=== PATIENT | male | born 1940 | race Asian ===

== ENCOUNTER 2016-10-19 11:54 | Inpatient (IN) | payer OTHER, MEDICAID ==
[~2016-10-19] VITALS: Ht 165.1 cm; Wt 75.3 kg
[2016-10-19] MEDS ORDERED: Ipratropium 0.02% Inh Soln 2.5ml UD ONE (12:32)
[2016-10-19] MEDS ORDERED: Albuterol ud Inhalation ONE (12:32)
[2016-10-19] MEDS ORDERED: Azithromycin 500 MG in D5W 275 ML IVPB ONE (12:45)
[2016-10-19] MEDS ORDERED: Solu-MEDROL 125mg Inj IVP ONE (12:45)
--- NOTE | 2016-10-19 12:45 | Emergency Room Report ---
History of Present Illness General Chief Complaint: Upper Respiratory Illness Source: Medical Record Present Illness HPI 76 YO M with "a few days" of cough, SOB, fever/chills. Was seen at outside hospital [facility] ED yesterday. 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 Patient with history of COPD, has pacemaker. Allergies: Coded Allergies: No Known Allergies (Verified Allergy, Unknown, 02/03/08) Patient History Past Medical History: COPD Past Surgical History: pacemaker Pertinent Family History: none Social History: Denies: alcohol use, drug use, smoking Immunizations: UTD Reviewed Nursing Documentation: PMH: Agreed, PSxH: Agreed Nursing Documentation-PMH Hx Cardiac Problems: Yes Hx Pacemaker: Yes - Pacemaker, Defibrilator Hx COPD: Yes Hx Diabetes: Yes History Of Psychiatric Problem: Yes - Developmental delay Review of Systems All Other Systems: negative except mentioned in HPI Physical Exam Vital Signs Date Time Temp Pulse Resp B/P Pulse Ox O2 Delivery O2 Flow Rate FiO2 10/19/16 12:06 101.1 102 20 151/67 97 Room Air Sp02 EP Interpretation: reviewed, normal General Appearance: normal inspection, well appearing, alert, GCS 15, non-toxic , mild distress Head: normocephalic, atraumatic Eyes: bilateral eye EOMI, bilateral eye PERRL ENT: normal ENT inspection, hearing grossly normal, normal voice Neck: normal inspection, full range of motion, supple, no bony tend Respiratory: normal inspection, accessory muscle use, speaking full sentences, wheezing Cardiovascular #1: regular rate, rhythm, no edema Gastrointestinal: normal inspection, normal bowel sounds, non tender, soft, no guarding, no hernia Genitourinary: no CVA tenderness Musculoskeletal: normal inspection, back normal, normal range of motion, Chayito' s Sign negative Neurologic: normal inspection, alert, oriented x3, responsive, director of 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 I attest that this information is true, accurate and complete to the best of my knowledge. I understand that any falsification, omission, or concealment of material fact may subject me to administrative, civil, or criminal liability. This patient warrants hospital admission for extreme of age and has a condition that cannot be treated as outpatient. Diagnostic Impression: Primary Impression: COPD exacerbation Additional Impression: SUSAN (acute kidney injury) ER Course COPD exacerbation. Febrile. Otherwise VS. PLAN Labs: No leuks. Stable H&H. SUSAN. Elevated BNP A: COPD exacerbation, SUSAN Improved on Duonebs, solumedrol, IV Mg, empiric Azithro, tylenol No obvious source of infection to warrant additional ABx at this time Elevated BNP in setting of elevated serumCr. Patient's O2 sat 98% on RA, unlikely concomitant acute CHF Admit to tele with Dr Cobb for [facility] [employer] [facility] insurance coverage Tele admission at 230pm EKG Diagnostic Results Rate: normal Rhythm: NSR ST Segments: no acute changes ASA given to the pt in ED: No Rhythm Strip Diag. Results EP Interpretation: yes Rate: 75 Rhythm: NSR, no PVC's, no ectopy Chest X-Ray Diagnostic Results EP Interpretation: Yes Findings: no consolidation, no effusion, no pneumothorax, no acute cardiopulmonary disease, other - Sternal wires seen with pacemarker/AICD Number of Views: 1 Last Vital Signs Date Time Temp Pulse Resp B/P Pulse Ox O2 Delivery O2 Flow Rate FiO2 10/19/16 12:06 101.1 102 20 151/67 97 Room Air Status: improved Disposition: ADMITTED INPATIENT Condition: Serious JOEY BOWLING M.D. Oct 19, 2016 12:45
[2016-10-19] MEDS: Ipratropium 0.02% Inh Soln 2.5ml UD HHN SCH ×2 (12:59→13:21)
[2016-10-19] MEDS: Albuterol ud Inhalation HHN SCH ×2 (12:59→13:21)
[2016-10-19] MEDS ORDERED: Azithromycin Inj IV ONE (13:01)
[2016-10-19 13:28] LABS: BASOPHILS % (AUTO) 0.6 % (0.0-2.0); EOSINOPHILS % (AUTO) 1.9 % (0.0-3.0); MEAN CORPUSCULAR HEMOGLOBIN 32.1 PG (27.0-31.0); MEAN CORPUSCULAR VOLUME 97 FL (80-99); MEAN PLATELET VOLUME 7.1 FL (6.5-10.1); MONOCYTES % (AUTO) 13.3 % (1.0-10.0); NEUTROPHILS % (AUTO) 72.2 % (45.0-75.0); PLATELET COUNT 185 K/UL (150-450); RED BLOOD COUNT 4.16 M/UL (4.70-6.10); RED CELL DISTRIBUTION WIDTH 11.9 % (11.6-14.8); WHITE BLOOD COUNT 6.7 K/UL (4.8-10.8)
[2016-10-19 13:44] LABS: ALANINE AMINOTRANSFERASE 35 U/L (3-41); ALBUMIN/GLOBULIN RATIO 1.1 (1.0-2.7); ANION GAP 16 (5-15); ASPARTATE AMINO TRANSFERASE 54 U/L (5-40); CALCIUM 8.4 mg/dL (8.6-10.2); CARBON DIOXIDE 28 mEQ/L (20-30); CHLORIDE 92 mEQ/L (98-107); CREATININE 1.4 mg/dL (0.7-1.2); HEMOLYSIS 7; POTASSIUM 4.1 mEQ/L (3.4-4.9); SODIUM 136 mEQ/L (135-145); TOTAL PROTEIN 6.7 g/dL (6.6-8.7); TROPONIN I < 0.30 ng/mL (<=0.30)
[2016-10-19 13:55] LABS: CKMB 2.5 ng/mL (< 6.7)
[2016-10-19] MEDS ORDERED: NKM (15:11)
[2016-10-19 15:29] VITALS: BP 125/75
[2016-10-19 17:29] VITALS: BP 121/79
[2016-10-19] MEDS ORDERED: LORazepam Inj 2mg/ml 1ml IV PRN (18:15)
[2016-10-19] MEDS ORDERED: Promethazine/Codeine 5ml UD ORAL PRN (18:15)
[2016-10-19] MEDS ORDERED: DuoNeb 0.5-3(2.5)mg/3ml neb HHN PRN ×2 (18:15)
[2016-10-19] MEDS ORDERED: Morphine Sulfate 2mg/ml Inj IVP PRN (18:15)
[2016-10-19] MEDS ORDERED: Nitroglycerin Subl 0.4mg tab (Bottle Of 25) SL PRN (18:15)
[2016-10-19] MEDS ORDERED: Miralax 17gm pkt ORAL PRN (18:15)
[2016-10-19 20:00] VITALS: BP 128/73
[2016-10-19] MEDS: Theophylline ER 100mg ORAL SCH (22:00)
[2016-10-19] MEDS: Heparin 5000 units/ml inj SUBQ SCH (22:01)
[2016-10-19] MEDS: NovoLOG Insulin Flexpen SUBQ SCH (22:02)
[2016-10-20] MEDS: Solu-MEDROL 125mg Inj IV SCH ×4 (00:15→21:37)
[2016-10-20 00:20] VITALS: BP 127/77
[2016-10-20 04:30] VITALS: BP 126/76
[2016-10-20 05:56] LABS: MEAN CORPUSCULAR HEMOGLOBIN 32.2 PG (27.0-31.0); MEAN CORPUSCULAR HGB CONC 33.9 G/DL (32.0-36.0); MEAN CORPUSCULAR VOLUME 95 FL (80-99); MEAN PLATELET VOLUME 7.2 FL (6.5-10.1); PLATELET COUNT 188 K/UL (150-450); RED BLOOD COUNT 4.15 M/UL (4.70-6.10); RED CELL DISTRIBUTION WIDTH 11.5 % (11.6-14.8)
[2016-10-20 06:11] LABS: ANION GAP 14 (5-15); CALCIUM 8.5 mg/dL (8.6-10.2); CARBON DIOXIDE 25 mEQ/L (20-30); CHLORIDE 98 mEQ/L (98-107); CREATININE 1.2 mg/dL (0.7-1.2); HEMOLYSIS 5; PHOSPHORUS 2.5 mg/dL (2.5-4.8); POTASSIUM 4.4 mEQ/L (3.4-4.9); SODIUM 137 mEQ/L (135-145)
[2016-10-20] MEDS: NovoLOG Insulin Flexpen SUBQ SCH ×4 (06:29→21:40)
[2016-10-20 07:15] LABS: ALANINE AMINOTRANSFERASE 31 U/L (3-41); ANION GAP 18 (5-15); ASPARTATE AMINO TRANSFERASE 41 U/L (5-40); CALCIUM 8.5 mg/dL (8.6-10.2); CARBON DIOXIDE 24 mEQ/L (20-30); CHLORIDE 94 mEQ/L (98-107); CREATININE 1.2 mg/dL (0.7-1.2); HEMOLYSIS 7; POTASSIUM 4.3 mEQ/L (3.4-4.9); SODIUM 136 mEQ/L (135-145); TOTAL PROTEIN 6.8 g/dL (6.6-8.7)
--- NOTE | 2016-10-20 07:29 | History and Physical ---
History of Present Illness General Date patient seen: Oct 20, 2016 Time patient seen: 07:30 Reason for Hospitalization: Upper Respiratory Illness Present Illness HPI 76 y/old male with few days of cough, SOB, fever/chills patient resides at [facility], hx of open heart surgery, pacemaker, DM, COPD, developmental delay. Patient was unable to provide any info due to medical condition. Workup in ED revealed fever -101.1, tachycardia-102, pulse oximetry stable on RA , no leukocytosis CXR with evidence of cardiomegaly with moderate pulmonary edema and suspected small left pleural effusion. ECG with ST, pro BNP 2596, troponin negative, creat-1.4 Unknown medications from [facility] in ED patient received nebulizing treatment , loading dose of IV Solumedrol, IV Magnesium, Tylenol and 1st dose of Azithromycin. Transferred to [facility] for further management Allergies: Coded Allergies: No Known Allergies (Verified Allergy, Unknown, 02/03/08) Medication History Scheduled No Known Medications* (NKM - No Known Medications*), 0 ., (Reported) Patient History Limited by: medical condition History Provided By: Medical Record Healthcare decision maker Resuscitation status Full Code Advanced Directive on File Review of Systems ROS Narrative Unable to obtain due to developmental delay Physical Exam General Appearance: no apparent distress, alert - responsive, incomprehensible speech Lines, tubes and drains: peripheral HEENT: normocephalic, atraumatic, anicteric, mucous membranes moist Neck: non-tender, supple Respiratory/Chest: lungs clear - with mdoerate air entry , no respiratory distress, no accessory muscle use, other - L chest pacemaker Cardiovascular/Chest: normal peripheral pulses, normal rate, no JVD Abdomen: normal bowel sounds, non tender, soft Extremities: normal range of motion, non-tender, no calf tenderness, normal capillary refill Neurologic: alert, responsive Musculoskeletal: normal muscle bulk Last 24 Hour Vital Signs Date Time Temp Pulse Resp B/P Pulse Ox O2 Delivery O2 Flow Rate FiO2 10/20/16 04:30 98.0 79 20 126/76 95 Room Air 10/20/16 04:00 84 10/20/16 03:01 89 18 96 Room Air 21 10/20/16 02:54 85 18 96 Room Air 21 10/20/16 00:20 97.9 83 20 127/77 97 Room Air 10/20/16 00:00 85 10/19/16 23:17 94 18 98 Nasal Cannula 2.0 28 10/19/16 23:12 91 18 98 Nasal Cannula 2.0 28 10/19/16 20:02 90 19 Room Air 10/19/16 20:00 98.2 90 20 128/73 Nasal Cannula 2.0 98 10/19/16 20:00 87 10/19/16 20:00 92 18 98 Nasal Cannula 2.0 28 10/19/16 19:55 90 18 98 Nasal Cannula 2.0 28 10/19/16 18:10 84 10/19/16 17:30 99.6 86 20 121/79 97 Room Air 10/19/16 17:29 99.6 86 20 121/79 97 Room Air 10/19/16 15:38 99.7 10/19/16 15:30 83 19 Room Air 10/19/16 15:29 99.7 83 19 125/75 93 Room Air 10/19/16 13:22 98 20 100 Room Air 10/19/16 13:05 97 20 100 Room Air 10/19/16 13:01 94 19 100 Room Air 10/19/16 12:50 95 19 100 Room Air 10/19/16 12:50 95 19 100 Room Air 10/19/16 12:40 92 20 100 Room Air 10/19/16 12:40 93 20 Room Air 10/19/16 12:06 101.1 102 20 151/67 97 Room Air Laboratory Tests Test 10/19/16 13:00 10/20/16 05:05 White Blood Count 6.7 K/UL (4.8-10.8) 8.0 K/UL (4.8-10.8) Red Blood Count 4.16 M/UL (4.70-6.10) L 4.15 M/UL (4.70-6.10) L Hemoglobin 13.3 G/DL (14.2-18.0) L 13.4 G/DL (14.2-18.0) L Hematocrit 40.4 % (42.0-52.0) L 39.4 % (42.0-52.0) L Mean Corpuscular Volume 97 FL (80-99) 95 FL (80-99) Mean Corpuscular Hemoglobin 32.1 PG (27.0-31.0) H 32.2 PG (27.0-31.0) H Mean Corpuscular Hemoglobin Concent 33.0 G/DL (32.0-36.0) 33.9 G/DL (32.0-36.0) Red Cell Distribution Width 11.9 % (11.6-14.8) 11.5 % (11.6-14.8) L Platelet Count 185 K/UL (150-450) 188 K/UL (150-450) Mean Platelet Volume 7.1 FL (6.5-10.1) 7.2 FL (6.5-10.1) Neutrophils (%) (Auto) 72.2 % (45.0-75.0) % (45.0-75.0) Lymphocytes (%) (Auto) 12.0 % (20.0-45.0) L % (20.0-45.0) Monocytes (%) (Auto) 13.3 % (1.0-10.0) H % (1.0-10.0) Eosinophils (%) (Auto) 1.9 % (0.0-3.0) % (0.0-3.0) Basophils (%) (Auto) 0.6 % (0.0-2.0) % (0.0-2.0) Sodium Level 136 mEQ/L (135-145) 137 mEQ/L (135-145) Potassium Level 4.1 mEQ/L (3.4-4.9) 4.4 mEQ/L (3.4-4.9) Chloride Level 92 mEQ/L (98-107) L 98 mEQ/L (98-107) Carbon Dioxide Level 28 mEQ/L (20-30) 25 mEQ/L (20-30) Anion Gap 16 (5-15) H 14 (5-15) Blood Urea Nitrogen 22 mg/dL (7-23) 26 mg/dL (7-23) H Creatinine 1.4 mg/dL (0.7-1.2) H 1.2 mg/dL (0.7-1.2) Estimat Glomerular Filtration Rate mL/min (>60) mL/min (>60) Glucose Level 236 mg/dL (74-106) H 246 mg/dL (74-106) H Calcium Level 8.4 mg/dL (8.6-10.2) L 8.5 mg/dL (8.6-10.2) L Total Bilirubin 0.4 mg/dL (0.0-1.2) 0.3 mg/dL (0.0-1.2) Aspartate Amino Transf (AST/SGOT) 54 U/L (5-40) H 41 U/L (5-40) H Alanine Aminotransferase (ALT/SGPT) 35 U/L (3-41) 31 U/L (3-41) Alkaline Phosphatase 54 U/L (40-129) 50 U/L (40-129) Total Creatine Kinase 1673 U/L (38-174) H Creatine Kinase MB 2.5 ng/mL (< 6.7) Creatine Kinase MB Relative Index 0.1 Troponin I < 0.30 ng/mL (<=0.30) Pro-B-Type Natriuretic Peptide 2596 pg/mL (0-450) H Total Protein 6.7 g/dL (6.6-8.7) 6.8 g/dL (6.6-8.7) Albumin 3.6 g/dL (3.5-5.2) 3.2 g/dL (3.5-5.2) L Globulin 3.1 g/dL 3.4 g/dL Albumin/Globulin Ratio 1.1 (1.0-2.7) 1.0 (1.0-2.7) Phosphorus Level 2.5 mg/dL (2.5-4.8) Height (Feet): 5 Height (Inches): 5.00 Weight (Pounds): 166 Medications Current Medications Medications (Trade) Dose Ordered Sig/Hemant Route PRN Reason Start Time Stop Time Status Last Admin Dose Admin Acetaminophen (Tylenol) 650 mg Q4H PRN ORAL fever 10/19/16 18:15 3 18:14 Albuterol/ Ipratropium (DuoNeb 0.5-3(2.5)mg/3ml) 3 ml Q4H PRN HHN dyspnea 10/19/16 18:15 2 18:14 Clonidine HCl (Catapres) 0.1 mg Q4H PRN ORAL sbp more than 160 10/19/16 18:15 11/18/16 18:14 Dextrose (Dextrose 50%) STAT PRN IV Hypoglycemia 10/19/16 18:15 11/18/16 18:14 Heparin Sodium (Porcine) (Heparin 5000 units/ml) 5,000 units EVERY 12 HOURS SUBQ 10/19/16 21:00 11/18/16 20:59 10/19/16 22:01 Influenza Virus Vaccine (Flu Vaccine) 0.5 ml ONCE ONCE IM 10/20/16 09:00 10/20/16 09:01 Insulin Aspart (NovoLOG) BEFORE MEALS AND HS SUBQ 10/19/16 21:00 11/18/16 20:59 10/20/16 06:29 Lorazepam (Ativan 2mg/ml 1ml) 0.5 mg Q4H PRN IV For Anxiety 10/19/16 18:15 10/26/16 18:14 Methylprednisolone Sodium Succinate (Solu-MEDROL) 60 mg EVERY 6 HOURS IV 10/20/16 00:00 11/19/16 00:00 10/20/16 06:23 Morphine Sulfate (Morphine Sulfate) 2 mg Q4H PRN IVP severe pain 7-10 10/19/16 18:15 10/26/16 18:14 Nitroglycerin (Ntg) 0.4 mg Q5M X 3 DOSES PRN SL Prn Chest Pain 10/19/16 18:15 11/18/16 18:14 Ondansetron HCl (Zofran) 4 mg Q6H PRN IVP Nausea & Vomiting 10/19/16 18:15 11/18/16 18:14 Pneumococcal Polyvalent Vaccine (Pneumovax) 0.5 ml ONCE ONCE IM 10/20/16 09:00 10/20/16 09:01 Polyethylene Glycol (Miralax) 17 gm DAILYPRN PRN ORAL Constipation 10/19/16 18:15 11/18/16 18:14 Promethazine HCl/ Codeine (Phenergan with Codeine) 5 ml Q6H PRN ORAL cough 10/19/16 18:15 11/18/16 18:14 Theophylline (Klever-Dur) 100 mg EVERY 12 HOURS ORAL 10/19/16 21:00 11/18/16 20:59 10/19/16 22:00 Assessment/Plan Assessment/Plan ASSESSMENT acute COPD exacerbation pacemaker ARF/ATN on ? CRI mild rhabdo moderate pulmonary edema left pleural effusion DM developmental delay PLAN OF CARE tele O2 HHN prn CXR with evidence of cardiomegaly with moderate pulmonary edema and suspected small left pleural effusion. taper IV steroids empiric abx sputum cx if able trial of Theophylline antitussive prn US chest in am and if enough pleural fluid to safely tap -thoracentesis, check INR trend CK in am get medication list form B&C possible medication causing rhabdo ? statin monitor renal parameters, lytes, renal US BS management with SS of insulin, check HgA1c Venous Duplex BLE DVT, GI prophylaxis transfer to [facility] floor case discussed and evaluated by supervising physician Dante ([place]),Leyla JAMISON Oct 20, 2016 07:29
[2016-10-20 08:00] VITALS: BP 130/66
--- NOTE | 2016-10-20 08:31 | Diagnostic Imaging Report ---
Clinical history: Acute dyspnea, cough. Technique: Portable AP chest radiograph was obtained. Comparison: 02/07/08. Findings: Left chest cardiac conduction device is in place. Median sternotomy wires and mediastinal clips are identified. There is mild cardiomegaly. Moderate perihilar and interstitial opacities are reflective of moderate pulmonary edema. Lung volumes are low with probable basilar atelectasis. Small left pleural effusion may be present. There is no clinically significant pneumothorax or right pleural effusion. Impression: 1. Cardiomegaly with moderate pulmonary edema and suspected small left pleural effusion. Left chest cardiac conduction device and post cardiothoracic surgical changes noted. 2. Low lung volumes with probable basilar atelectasis.
[2016-10-20] MEDS ORDERED: Influenza Virus Vaccine 0.5ml IM ONE (09:00)
[2016-10-20] MEDS ORDERED: Pneumococcal Vaccine 25mcg/0.5ml IM ONE (09:00)
[2016-10-20] MEDS: Theophylline ER 100mg ORAL SCH ×2 (10:40→21:39)
[2016-10-20] MEDS: Heparin 5000 units/ml inj SUBQ SCH ×2 (10:45→21:41)
[2016-10-20 12:00] VITALS: BP 130/78
[2016-10-20] MEDS: Levofloxacin 500mg tab ORAL SCH (12:23)
[2016-10-20 16:00] VITALS: BP 139/76
[2016-10-20 18:30] LABS: TROPONIN I < 0.30 ng/mL (<=0.30)
[2016-10-20 20:00] VITALS: BP 130/79
[2016-10-21] VITALS: BP 117/71
[2016-10-21 04:00] VITALS: BP 117/67
[2016-10-21] MEDS: NovoLOG Insulin Flexpen SUBQ SCH ×3 (06:44→21:25)
[2016-10-21] MEDS: Solu-MEDROL 125mg Inj IV SCH ×3 (06:44→21:21)
[2016-10-21 06:48] LABS: PROTHROMBIN TIME 10.2 SEC (9.30-11.50)
[2016-10-21 06:58] LABS: TROPONIN I < 0.30 ng/mL (<=0.30)
[2016-10-21] MEDS: Levofloxacin 500mg tab ORAL SCH (08:29)
[2016-10-21] MEDS: Theophylline ER 100mg ORAL SCH ×2 (08:29→21:21)
[2016-10-21] MEDS: Heparin 5000 units/ml inj SUBQ SCH ×2 (08:30→21:24)
[2016-10-21 08:50] VITALS: BP 127/72
--- NOTE | 2016-10-21 10:06 | Cardiology Report ---
APPROVED REPORT EKG Measurement Heart [id number] Normal sinus rhythm Possible Left atrial enlargement Septal infarct, age undetermined Abnormal ECG
[2016-10-21 11:53] VITALS: BP 121/77
[2016-10-21] MEDS ORDERED: Nitroglycerin Subl 0.4mg tab (Bottle Of 25) SL PRN (12:00)
--- NOTE | 2016-10-21 12:01 | Diagnostic Imaging Report ---
Indication: Dyspnea Comparison: 10/19/16 A single view chest radiograph was obtained. Findings: Central vascular prominence and cardiomegaly are again noted. No change demonstrated. Impression: Mild CHF
[2016-10-21] MEDS ORDERED: Promethazine/Codeine 5ml UD ORAL PRN (12:15)
[2016-10-21] MEDS ORDERED: Miralax 17gm pkt ORAL PRN (13:15)
[2016-10-21] MEDS ORDERED: LORazepam Inj 2mg/ml 1ml IV PRN (13:30)
[2016-10-21] MEDS ORDERED: Morphine Sulfate 2mg/ml Inj IVP PRN (14:15)
[2016-10-21 16:45] VITALS: BP 118/70
[2016-10-21 19:59] VITALS: BP 118/73
[2016-10-22 04:00] VITALS: BP 121/73
[2016-10-22] MEDS: Solu-MEDROL 125mg Inj IV SCH (06:33)
[2016-10-22] MEDS: NovoLOG Insulin Flexpen SUBQ SCH ×4 (06:34→20:56)
[2016-10-22 08:37] VITALS: BP 129/74
[2016-10-22] MEDS: Theophylline ER 100mg ORAL SCH ×2 (08:59→20:55)
[2016-10-22] MEDS: Levofloxacin 500mg tab ORAL SCH (09:01)
[2016-10-22] MEDS: Heparin 5000 units/ml inj SUBQ SCH ×2 (09:06→20:54)
[2016-10-22] MEDS: DuoNeb 0.5-3(2.5)mg/3ml neb HHN PRN ×2 (09:28→16:15)
[2016-10-22 11:39] VITALS: BP 129/78
[2016-10-22 16:00] VITALS: BP 132/79
--- NOTE | 2016-10-22 16:19 | Diagnostic Imaging Report ---
Indication: Pleural effusion, dyspnea Technique: Grayscale images of the bilateral hemithoraces Comparison: None Findings: No pleural fluid is demonstrated either hemithorax Impression: Negative for pleural effusion
--- NOTE | 2016-10-22 17:08 | Pulmonology Progress Note ---
Assessment/Plan Problems: (1) Acute respiratory failure (2) COPD exacerbation (3) SUSAN (acute kidney injury) Assessment/Plan taper steroids continue antibiotics no cultures available yet check electrolytes. Subjective Interval Events: later entery for 10/21/ sitting up in the chair , not communicating Allergies: Coded Allergies: No Known Allergies (Verified Allergy, Unknown, 02/03/08) Objective Last 24 Hour Vital Signs Date Time Temp Pulse Resp B/P Pulse Ox O2 Delivery O2 Flow Rate FiO2 10/22/16 16:16 84 18 100 Room Air 21 10/22/16 16:15 21 10/22/16 16:15 82 16 100 Room Air 21 10/22/16 16:00 98.1 81 20 132/79 100 Room Air 10/22/16 11:39 97.3 79 15 129/78 100 Room Air 10/22/16 09:28 86 15 98 Room Air 21 10/22/16 09:28 21 10/22/16 08:37 97.2 85 14 129/74 97 Room Air 10/22/16 07:04 85 16 Room Air 10/22/16 04:00 97.4 75 18 121/73 98 Room Air 10/21/16 19:59 97.1 77 19 118/73 98 Room Air 10/21/16 19:52 83 18 Room Air 21 Intake and Output 10/21/16 10/22/16 19:00 07:00 Intake Total 440 ml 840 ml Balance 440 ml 840 ml Intake Oral 440 ml 840 ml # Voids 3 7 Objective General Appearance: cachetic Lines, tubes and drains: peripheral HEENT: normocephalic, atraumatic Neck: non-tender, normal alignment Respiratory/Chest: chest wall non-tender, lungs clear Breasts: no masses Cardiovascular/Chest: normal peripheral pulses Abdomen: normal bowel sounds, non tender Genitourinary/Rectal: normal genital exam Extremities: normal range of motion, normal inspection Skin Exam: normal pigmentation Microbiology Date/Time Source Procedure Growth Status 10/20/16 04:30 Nasal Nares 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 Complete 10/20/16 04:30 Rectal Mucosa VRE Culture - Final NO VANCOMYCIN RESISTANT ENTEROCOCCUS ... Complete Current Medications Medications (Trade) Dose Ordered Sig/Hemant Route PRN Reason Start Time Stop Time Status Last Admin Dose Admin Acetaminophen (Tylenol) 650 mg Q4H PRN ORAL fever 10/21/16 13:30 11/20/16 13:29 Albuterol/ Ipratropium (DuoNeb 0.5-3(2.5)mg/3ml) 3 ml Q4H PRN HHN dyspnea 10/21/16 13:15 10/26/16 13:14 10/22/16 16:15 Clonidine HCl (Catapres) 0.1 mg Q4H PRN ORAL sbp more than 160 10/21/16 14:15 11/20/16 14:14 Dextrose (Dextrose 50%) STAT PRN IV Hypoglycemia 10/21/16 13:15 11/20/16 13:14 Heparin Sodium (Porcine) (Heparin 5000 units/ml) 5,000 units EVERY 12 HOURS SUBQ 10/21/16 21:00 11/20/16 20:59 10/22/16 09:06 Insulin Aspart (NovoLOG) BEFORE MEALS AND HS SUBQ 10/21/16 16:30 11/20/16 16:29 10/22/16 12:22 Levofloxacin (Levaquin) 500 mg DAILY ORAL 10/22/16 09:00 10/26/16 08:59 10/22/16 09:01 Lorazepam (Ativan 2mg/ml 1ml) 0.5 mg Q4H PRN IV For Anxiety 10/21/16 13:30 10/28/16 13:29 Morphine Sulfate (Morphine Sulfate) 2 mg Q4H PRN IVP severe pain 7-10 10/21/16 14:15 10/28/16 14:14 Nitroglycerin (Ntg) 0.4 mg Q5M X 3 DOSES PRN SL Prn Chest Pain 10/21/16 12:00 11/20/16 11:59 Ondansetron HCl (Zofran) 4 mg Q6H PRN IVP Nausea & Vomiting 10/21/16 14:15 11/20/16 14:14 Polyethylene Glycol (Miralax) 17 gm DAILYPRN PRN ORAL Constipation 10/21/16 13:15 11/20/16 13:14 Promethazine HCl/ Codeine (Phenergan with Codeine) 5 ml Q6H PRN ORAL cough 10/21/16 12:15 11/20/16 12:14 10/22/16 09:02 Theophylline (Klever-Dur) 100 mg EVERY 12 HOURS ORAL 10/21/16 21:00 11/20/16 20:59 10/22/16 08:59 JASE COSTA Oct 22, 2016 17:08
--- NOTE | 2016-10-22 17:10 | Pulmonology Progress Note ---
Assessment/Plan Problems: (1) Acute respiratory failure (2) COPD exacerbation (3) SUSAN (acute kidney injury) Assessment/Plan improving dc planning taper steroids continue antibiotics no cultures available yet check electrolytes. Subjective ROS Limited/Unobtainable: No Interval Events: less cough, no sob Allergies: Coded Allergies: No Known Allergies (Verified Allergy, Unknown, 02/03/08) Objective Last 24 Hour Vital Signs Date Time Temp Pulse Resp B/P Pulse Ox O2 Delivery O2 Flow Rate FiO2 10/22/16 16:16 84 18 100 Room Air 21 10/22/16 16:15 21 10/22/16 16:15 82 16 100 Room Air 21 10/22/16 16:00 98.1 81 20 132/79 100 Room Air 10/22/16 11:39 97.3 79 15 129/78 100 Room Air 10/22/16 09:28 86 15 98 Room Air 21 10/22/16 09:28 21 10/22/16 08:37 97.2 85 14 129/74 97 Room Air 10/22/16 07:04 85 16 Room Air 10/22/16 04:00 97.4 75 18 121/73 98 Room Air 10/21/16 19:59 97.1 77 19 118/73 98 Room Air 10/21/16 19:52 83 18 Room Air 21 Intake and Output 10/21/16 10/22/16 19:00 07:00 Intake Total 440 ml 840 ml Balance 440 ml 840 ml Intake Oral 440 ml 840 ml # Voids 3 7 Objective General Appearance: cachetic Lines, tubes and drains: peripheral HEENT: normocephalic, atraumatic Neck: non-tender, normal alignment Respiratory/Chest: chest wall non-tender, lungs clear Breasts: no masses Cardiovascular/Chest: normal peripheral pulses Abdomen: normal bowel sounds, non tender Genitourinary/Rectal: normal genital exam Extremities: normal range of motion, normal inspection Skin Exam: normal pigmentation HEENT: normocephalic Respiratory/Chest: chest wall non-tender, lungs clear Cardiovascular: normal peripheral pulses Abdomen: normal bowel sounds, soft, non tender Extremities: no cyanosis Neurologic/Psychiatric: information scientist II-XII grossly normal, no motor/sensory deficits Microbiology Date/Time Source Procedure Growth Status 10/20/16 04:30 Nasal Nares 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 Complete 10/20/16 04:30 Rectal Mucosa VRE Culture - Final NO VANCOMYCIN RESISTANT ENTEROCOCCUS ... Complete Current Medications Medications (Trade) Dose Ordered Sig/Hemant Route PRN Reason Start Time Stop Time Status Last Admin Dose Admin Acetaminophen (Tylenol) 650 mg Q4H PRN ORAL fever 10/21/16 13:30 11/20/16 13:29 Albuterol/ Ipratropium (DuoNeb 0.5-3(2.5)mg/3ml) 3 ml Q4H PRN HHN dyspnea 10/21/16 13:15 10/26/16 13:14 10/22/16 16:15 Clonidine HCl (Catapres) 0.1 mg Q4H PRN ORAL sbp more than 160 10/21/16 14:15 11/20/16 14:14 Dextrose (Dextrose 50%) STAT PRN IV Hypoglycemia 10/21/16 13:15 11/20/16 13:14 Heparin Sodium (Porcine) (Heparin 5000 units/ml) 5,000 units EVERY 12 HOURS SUBQ 10/21/16 21:00 11/20/16 20:59 10/22/16 09:06 Insulin Aspart (NovoLOG) BEFORE MEALS AND HS SUBQ 10/21/16 16:30 11/20/16 16:29 10/22/16 12:22 Levofloxacin (Levaquin) 500 mg DAILY ORAL 10/22/16 09:00 10/26/16 08:59 10/22/16 09:01 Lorazepam (Ativan 2mg/ml 1ml) 0.5 mg Q4H PRN IV For Anxiety 10/21/16 13:30 10/28/16 13:29 Morphine Sulfate (Morphine Sulfate) 2 mg Q4H PRN IVP severe pain 7-10 10/21/16 14:15 10/28/16 14:14 Nitroglycerin (Ntg) 0.4 mg Q5M X 3 DOSES PRN SL Prn Chest Pain 10/21/16 12:00 11/20/16 11:59 Ondansetron HCl (Zofran) 4 mg Q6H PRN IVP Nausea & Vomiting 10/21/16 14:15 11/20/16 14:14 Polyethylene Glycol (Miralax) 17 gm DAILYPRN PRN ORAL Constipation 10/21/16 13:15 11/20/16 13:14 Promethazine HCl/ Codeine (Phenergan with Codeine) 5 ml Q6H PRN ORAL cough 10/21/16 12:15 11/20/16 12:14 10/22/16 09:02 Theophylline (Klever-Dur) 100 mg EVERY 12 HOURS ORAL 10/21/16 21:00 11/20/16 20:59 10/22/16 08:59 JASE COSTA Oct 22, 2016 17:10
[2016-10-22] MEDS ORDERED: DUONEB 0.5-3(2.53 ML HHN (17:11)
[2016-10-22] MEDS ORDERED: THEOPHYLLINE A100 MG ORAL (17:11)
[2016-10-22 20:00] VITALS: BP 118/76
[2016-10-23] VITALS: BP 130/85
[2016-10-23 04:00] VITALS: BP 129/76
[2016-10-23] MEDS: NovoLOG Insulin Flexpen SUBQ SCH ×2 (06:30→11:30)
[2016-10-23] MEDS: Levofloxacin 500mg tab ORAL SCH (08:06)
[2016-10-23] MEDS: Theophylline ER 100mg ORAL SCH (08:06)
[2016-10-23] MEDS: Heparin 5000 units/ml inj SUBQ SCH (08:08)
[2016-10-23 08:37] VITALS: BP 113/72
[2016-10-23 11:57] VITALS: BP 146/79
[2016-10-23] MEDS ORDERED: Tubing IV Secondary IV ONE (12:50)
[2016-10-23] MEDS ORDERED: Tubing Blood Filter IV ONE (12:50)
[2016-10-23] MEDS ORDERED: NS 275ml ONE (12:50)
[2016-10-23] MEDS ORDERED: D5 1/2NS 1000ml IV ONE (12:50)
--- NOTE | 2016-10-23 16:10 | Pulmonology Progress Note ---
Assessment/Plan Problems: (1) Acute respiratory failure (2) COPD exacerbation (3) SUSAN (acute kidney injury) Assessment/Plan improving dc planning taper steroids continue antibiotics no cultures available yet check electrolytes. Subjective Constitutional: Reports: no symptoms HEENT: Repors: no symptoms Respiratory: Reports: no symptoms Allergies: Coded Allergies: No Known Allergies (Verified Allergy, Unknown, 02/03/08) Objective Last 24 Hour Vital Signs Date Time Temp Pulse Resp B/P Pulse Ox O2 Delivery O2 Flow Rate FiO2 10/23/16 11:57 97.6 83 19 146/79 99 Room Air 10/23/16 08:37 97.9 92 19 113/72 100 Room Air 10/23/16 06:30 75 16 Room Air 21 10/23/16 04:00 97.0 78 20 129/76 100 Room Air 10/23/16 00:00 97.5 79 20 130/85 100 Room Air 10/22/16 20:00 98.1 77 20 118/76 100 Room Air 10/22/16 19:30 82 16 Room Air 21 10/22/16 16:16 84 18 100 Room Air 21 10/22/16 16:15 21 10/22/16 16:15 82 16 100 Room Air 21 Intake and Output 10/22/16 10/23/16 19:00 07:00 Intake Total 1000 ml 240 ml Output Total 200 ml Balance 1000 ml 40 ml Intake Oral 1000 ml 240 ml Output Urine Total 200 ml # Voids 2 6 # Bowel Movements 1 Objective General Appearance: cachetic Lines, tubes and drains: peripheral HEENT: normocephalic, atraumatic Neck: non-tender, normal alignment Respiratory/Chest: chest wall non-tender, lungs clear Breasts: no masses Cardiovascular/Chest: normal peripheral pulses Abdomen: normal bowel sounds, non tender Genitourinary/Rectal: normal genital exam Extremities: normal range of motion, normal inspection Skin Exam: normal pigmentation HEENT: normocephalic, atraumatic Respiratory/Chest: chest wall non-tender, lungs clear Cardiovascular: normal peripheral pulses, normal rate Abdomen: normal bowel sounds, soft, non tender Extremities: no cyanosis Skin: no rash JASE COSTA Oct 23, 2016 16:10
--- NOTE | 2016-10-24 16:37 | Discharge Summary ---
Discharge Summary Hospital Course Date of Admission Oct 19, 2016 at 12:53 Date of Discharge Oct 23, 2016 at 12:51 Admitting Diagnosis COPD Exacerbation HPI Onesimo Sen is a 76 year old male who was admitted on Oct 19, 2016 at 12:53 for Chronic Obstruction Exacerbation Disease Hospital Course [id number] Discharge Discharge Disposition Patient was discharged to [facility] (01) Discharge Diagnoses: Evi Garay NP Oct 24, 2016 16:37
--- NOTE | 2016-10-25 02:38 | Discharge Summary 2 SIG ---
DATE OF ADMISSION: 10/19/2016 DATE OF DISCHARGE: 10/23/2016 BRIEF HOSPITAL COURSE: The patient is a 76-year-old male, who presented with cough, shortness of breath, fever, and chills. He came from [facility] and has a history of open heart surgery, pacemaker, diabetes, chronic obstructive pulmonary disease, and developmental delay. On evaluation at ED, was febrile at 101.1 degrees and tachycardic. Chest x-ray with evidence of cardiomegaly and moderate pulmonary edema and small left pleural effusion. He was admitted to telemetry. Laboratories showed mild rhabdomyolysis and azotemia. He was given IV steroids and was started on empiric antibiotics, started on theophylline, and antitussives. Ultrasound of the chest was negative for pleural effusion. Steroids were tapered and the patient was discharged back to [facility]. FINAL DIAGNOSES: 1. Acute respiratory failure. 2. Acute chronic obstructive pulmonary disease exacerbation. 3. Acute kidney injury. 4. Pacemaker. 5. Acute renal failure/acute tubular necrosis on chronic renal insufficiency. 6. Mild rhabdomyolysis. 7. Moderate pulmonary edema. 8. Diabetes mellitus. 9. Developmental delay. Milli Cobb M.D. I have been assigned to dictate discharge summary on this account and I was not involved in the patient's management. Evi Garay N.P. DR: DESHAWN JOB#: [id number] CC:
--- NOTE | 2016-11-06 09:42 | Diagnostic Imaging Report ---
APPROVED REPORT CPT Code: 70199 Present Symptoms Lower Extremity Pain: Bilateral BILATERAL: Imaging reveals a patent deep venous system bilaterally. There is no evidence of thrombus within the femoral, popliteal or tibial segments. The greater saphenous veins are also within normal limits. Doppler indicates normal spontaneous flow within these segments.
== END 2016-10-23 12:51 | disposition home or self-care (01) | DRG 190 ==
LOC: EMR 12:48 → 2E 12:53 → EDBEDREQ 13:28 → 2E 10-20 06:09 → 4E 10-21 11:56
DX: J44.1 Chronic obstructive pulmonary disease with (acute) exacerbation (principal); N17.0 Acute kidney failure with tubular necrosis; J96.00 Acute respiratory failure, unspecified whether with hypoxia or hypercapnia; J90 Pleural effusion, not elsewhere classified; M62.82 Rhabdomyolysis; E11.22 Type 2 diabetes mellitus with diabetic chronic kidney disease; N18.9 Chronic kidney disease, unspecified; R62.50 Unspecified lack of expected normal physiological development in childhood; Z95.0 Presence of cardiac pacemaker; Z23 Encounter for immunization
CPT/HCPCS: 36415; 71010; 76604; 80053; 80069; 82550; 82553; 82962; 83880; 84484; 85025; 85610; 87081; 90732; 93005; 93970; 94640; 94664; J1815; J7620; Q2036

== ENCOUNTER 2016-10-28 12:49 | Emergency (ER) | payer OTHER, MEDICAID ==
[~2016-10-28] VITALS: Ht 162.6 cm; Wt 81.6 kg
[~2016-10-28 12:49] MED LIST: DUONEB 0.5-3(2.53 ML HHN; NKM; THEOPHYLLINE A100 MG ORAL
[2016-10-28 13:27] VITALS: BP 129/83
--- NOTE | 2016-10-28 15:12 | Diagnostic Imaging Report ---
Indications: Cough Technique: Portable AP chest Findings: Comparison: 10/21/16 Cardiac silhouette remains normal in size. Pulmonary vasculature remains within normal limits. Hazy opacity over left lung base has improved. Lungs and pleura currently clear. Arch calcification, sternal wires, chest wall pacemaker all again noted. IMPRESSION: Improvement in left basal opacity may be technically related No current evidence of acute cardiopulmonary disease
--- NOTE | 2016-10-28 16:10 | Emergency Room Report ---
History of Present Illness General Chief Complaint: General Complaint Source: Patient, Medical Record, Caregiver (PARI HANNA) Present Illness HPI The patient is a 76-year-old male with history of diabetes, hypertension, and developmental delay presenting with a bruise to the left abdomen. The patient was discharged from this hospital 5 days prior for COPD exacerbation. The patient's caregiver states that the patient was discharged with the same bruising but was told to return to the emergency department after the primary physician saw it. The patient is unable to provide any information and the caregiver is unsure of what may have caused this. The patient was not witnessed falling or injuring the abdomen in any way. The patient has been behaving normally per the caregiver. No nausea, vomiting, fever, chills, diarrhea, constipation, cough (PARI HANNA) Allergies: Coded Allergies: No Known Allergies (Verified Allergy, Unknown, 02/03/08) Patient History Past Medical History: see triage record Pertinent Family History: none Reviewed Nursing Documentation: PMH: Agreed, PSxH: Agreed (PARI HANNA) Nursing Documentation-PMH Past Medical History: No History, Except For Hx Cardiac Problems: Yes Hx Pacemaker: Yes Hx COPD: Yes Hx Diabetes: Yes Hx Cancer: No Hx Gastrointestinal Problems: No Hx Neurological Problems: Yes - Developmental Delay (PARI HANNA) Review of Systems All Other Systems: negative except mentioned in HPI (PARI HANNA) Physical Exam Vital Signs Date Time Temp Pulse Resp B/P Pulse Ox O2 Delivery O2 Flow Rate FiO2 10/28/16 13:17 97.5 102 20 129/83 96 Room Air Sp02 EP Interpretation: reviewed, normal General Appearance: no apparent distress, alert, GCS 15, non-toxic Head: normocephalic, atraumatic Eyes: bilateral eye PERRL, bilateral eye normal inspection Respiratory: chest non-tender, lungs clear, normal breath sounds, speaking full sentences Cardiovascular #1: regular rate, rhythm, no edema Gastrointestinal: normal bowel sounds, non tender, soft, non-distended, no guarding, no rebound Genitourinary: normal inspection, no CVA tenderness Musculoskeletal: back normal, gait/station normal, normal range of motion, non- tender Neurologic: alert, responsive, normal gait Skin: well hydrated, normal turgor, hematoma - Across L lower abd and torso Lymphatic: no adenopathy (PARI HANNA) Medical Decision Making PA Attestation Dr. zavala is my supervising physician. Patient management was discussed with my supervising physician (PARI HANNA) Medicare Attestation Please note that the patient was also seen and evaluated by myself I do agree with the findings and the workup Patient appears to have evidence of a left-sided hematoma Unclear the etiology of this Ultrasound does not reveal any free fluid or internal organ injury Patient remains clinically stable on my examination as well And is stable for close outpatient followup (JAZMIN ZAVALA D.O.) Diagnostic Impression: Primary Impression: Abdominal hematoma ER Course The patient is a 76-year-old male developmentally delayed presenting for left lower abdomen hematoma Differential diagnosis considered but not limited to: Contusion, hematoma, shingles Physical exam: Vitals within normal limits. No apparent distress Abdomen is soft and nontender. Normal bowel sounds. There is erythematous hematoma over the left lower abdomen to the midaxillary line. No fluctuance. No edema. Skin is warm and dry. No bleeding Abd US shows no free fluid or other acute findings. Chest x-ray has improved. No acute findings The patient will be transferred back to the facility in stable condition. (PARI HANNA) Chest X-Ray Diagnostic Results EP Interpretation: Yes Findings: no consolidation, no acute cardiopulmonary disease Number of Views: 1 PA Scribe Text I have reviewed the chest x-ray with my SP. There is an improvement from last chest x-ray. No acute findings (PARI HANNA) CT/MRI/US Diagnostic Results CT/MRI/US Diagnostic Results : Imaging Test Ordered: Abd US Impression Hepatic steatosis Midline structures including left hepatic lobe, pancreatic tail, proximal and distal bowel aorta obscured Remainder of exam unremarkable (PARI HANNA) Last Vital Signs Date Time Temp Pulse Resp B/P Pulse Ox O2 Delivery O2 Flow Rate FiO2 10/28/16 13:17 97.5 102 20 129/83 96 Room Air Status: improved (PARI HANNA) Disposition: HOME, SELF-CARE Condition: Improved Patient Instructions: Hematoma Additional Instructions: I discussed my findings with the patient. All questions and concerns have been answered. Treatment and medication compliance have been addressed. I advised the patient that they need to follow up with PMD in 3-5 days. Return to ED if symptoms worsen, new symptoms arise, or if needed for any reason. Patient verbalized understanding of discharge instructions. PARI HANNA Oct 28, 2016 16:10 JAZMIN ZAVALA D.O. Oct 28, 2016 16:28
--- NOTE | 2016-10-28 17:08 | Diagnostic Imaging Report ---
Indications: Abdominal pain Technique: Transabdominal real-time grayscale and duplex Doppler imaging of the upper abdomen and retroperitoneum was performed. Findings: Comparison: None. Patient's body habitus attenuates sonographic beam penetration, limiting evaluation. Left lobe of liver partially obscured. Right lobe of liver normal size and surface contour, mildly increased parenchymal echogenicity. No focal lesions. Gallbladder unremarkable. No intraluminal stones or sludge. No mural thickening or adjacent fluid collections. Sonographic Nugent sign not reported.. Bile ducts normal caliber. Common bile duct 4 mm. Pancreas head and body unremarkable; tail obscured. Spleen unremarkable. Right kidney unremarkable. Left kidney unremarkable. And abdominal aorta, intrahepatic portion of inferior vena cava patent, normal caliber. Proximal and distal bowel aorta obscured. Duplex Doppler imaging demonstrates antegrade flow in splenic, portal, hepatic veins. No ascites. IMPRESSION: Hepatic steatosis Midline structures including left hepatic lobe, pancreatic tail, proximal and distal bowel aorta obscured Remainder of exam unremarkable .
[2016-10-28 17:53] VITALS: BP 129/83
== END 2016-10-28 17:58 | disposition home or self-care (01) ==
LOC: EMR 14:01
DX: M79.81 Nontraumatic hematoma of soft tissue (principal); E11.9 Type 2 diabetes mellitus without complications; I10 Essential (primary) hypertension; J44.9 Chronic obstructive pulmonary disease, unspecified; Z95.0 Presence of cardiac pacemaker; K76.0 Fatty (change of) liver, not elsewhere classified
CPT/HCPCS: 71010; 76700; 99284

== ENCOUNTER 2016-12-23 16:49 | Inpatient (IN) | payer OTHER, MEDICAID ==
[~2016-12-23] VITALS: Ht 170.2 cm; Wt 70.8 kg
[2016-12-23 17:17] VITALS: BP 154/76
[2016-12-23 17:31] LABS: EOSINOPHILS % (AUTO) 6.6 % (0.0-3.0); LYMPHOCYTES % (AUTO) 18.4 % (20.0-45.0); MEAN CORPUSCULAR HEMOGLOBIN 35.3 PG (27.0-31.0); MEAN CORPUSCULAR HGB CONC 35.9 G/DL (32.0-36.0); MEAN CORPUSCULAR VOLUME 98 FL (80-99); MEAN PLATELET VOLUME 6.4 FL (6.5-10.1); MONOCYTES % (AUTO) 10.9 % (1.0-10.0); NEUTROPHILS % (AUTO) 63.2 % (45.0-75.0); PLATELET COUNT 201 K/UL (150-450); RED BLOOD COUNT 4.27 M/UL (4.70-6.10); RED CELL DISTRIBUTION WIDTH 12.1 % (11.6-14.8); WHITE BLOOD COUNT 9.1 K/UL (4.8-10.8)
[2016-12-23 17:42] LABS: INR 0.9 (0.9-1.1); PROTHROMBIN TIME 9.2 SEC (9.30-11.50)
[2016-12-23 17:48] LABS: TROPONIN I < 0.30 ng/mL (<=0.30)
[2016-12-23 17:50] LABS: ALANINE AMINOTRANSFERASE 14 U/L (3-41); ALBUMIN/GLOBULIN RATIO 1.3 (1.0-2.7); ANION GAP 17 (5-15); ASPARTATE AMINO TRANSFERASE 20 U/L (5-40); CALCIUM 9.6 mg/dL (8.6-10.2); CARBON DIOXIDE 28 mEQ/L (20-30); CHLORIDE 93 mEQ/L (98-107); CREATININE 1.4 mg/dL (0.7-1.2); HEMOLYSIS 32; LIPASE 68 U/L (< 60); POTASSIUM 3.6 mEQ/L (3.4-4.9); SODIUM 138 mEQ/L (135-145); TOTAL PROTEIN 7.5 g/dL (6.6-8.7)
[2016-12-23] MEDS ORDERED: BENAZEPRIL HCL5 MG ORAL (17:50)
[2016-12-23] MEDS ORDERED: FUROSEMIDE20 M1 ORAL (17:50)
[2016-12-23] MEDS ORDERED: HALOBETASOL PRO15 GM TP ×2 (17:50→18:05)
[2016-12-23] MEDS ORDERED: MULTIVITAMINS1 EAC3 ORAL (17:50)
[2016-12-23] MEDS ORDERED: SIMVASTATIN40 MG ORAL (17:50)
[2016-12-23 17:57] LABS: CKMB 1.7 ng/mL (< 6.7)
[2016-12-23] MEDS ORDERED: FOLIC ACID1 MG ORAL (17:58)
[2016-12-23] MEDS ORDERED: METFORMIN HCL500 M1 ORAL (17:58)
[2016-12-23] MEDS ORDERED: SPIRONOLACTONE25 MG ORAL ×2 (17:58→17:59)
[2016-12-23] MEDS ORDERED: CARVEDILOL3.125 MG ORAL (17:58)
[2016-12-23] MEDS ORDERED: ASPIR 8181 MG ORAL (17:58)
[2016-12-23] MEDS ORDERED: TAMSULOSIN HCL0.4 MG ORAL (17:58)
[2016-12-23] MEDS ORDERED: MONTELUKAST SOD10 MG ORAL (17:58)
[2016-12-23] MEDS ORDERED: KETOCONAZOLE120 ML TP (18:05)
[2016-12-23] MEDS ORDERED: DESONIDE15 GM TP (18:05)
[2016-12-23] MEDS ORDERED: Nitroglycerin Subl 0.4mg tab (Bottle Of 25) SL PRN (19:00)
[2016-12-23] MEDS ORDERED: Enalaprilat 2.5mg/2ml Inj IV PRN (19:00)
[2016-12-23] MEDS ORDERED: Miralax 17gm pkt ORAL PRN (19:00)
[2016-12-23] MEDS ORDERED: Morphine Sulfate 2mg/ml Inj IVP PRN (19:00)
[2016-12-23] MEDS ORDERED: DuoNeb 0.5-3(2.5)mg/3ml neb HHN PRN (19:00)
[2016-12-23] MEDS ORDERED: Ketorolac 30mg Inj IV PRN (19:00)
[2016-12-23] MEDS ORDERED: Diltiazem 25mg/5ml IV PRN (19:00)
[2016-12-23 19:09] VITALS: BP 139/72
[2016-12-23 20:35] VITALS: BP 120/80
[2016-12-23] MEDS: NovoLOG Insulin Flexpen SUBQ SCH (21:48)
[2016-12-23] MEDS: Heparin 5000 units/ml inj SUBQ SCH (21:54)
[2016-12-24 00:19] VITALS: BP 126/72
[2016-12-24 03:56] VITALS: BP 128/84
[2016-12-24] MEDS: Heparin 5000 units/ml inj SUBQ SCH ×3 (06:11→21:16)
[2016-12-24] MEDS: NovoLOG Insulin Flexpen SUBQ SCH ×4 (06:13→21:15)
[2016-12-24 08:25] VITALS: BP 120/73
[2016-12-24] MEDS: Spironolactone 25mg tab ORAL SCH (08:48)
[2016-12-24] MEDS: Aspirin Baby 81mg ORAL SCH (08:48)
[2016-12-24] MEDS: Tamsulosin 0.4mg cap ORAL SCH (08:48)
[2016-12-24] MEDS: Lisinopril 2.5mg tab ORAL SCH (08:48)
[2016-12-24] MEDS ORDERED: Benazepril 10mg tab ORAL SCH (09:00)
[2016-12-24 09:12] LABS: BASOPHILS % (AUTO) 0.7 % (0.0-2.0); EOSINOPHILS % (AUTO) 6.2 % (0.0-3.0); LYMPHOCYTES % (AUTO) 11.4 % (20.0-45.0); MEAN CORPUSCULAR HEMOGLOBIN 32.8 PG (27.0-31.0); MEAN CORPUSCULAR HGB CONC 33.4 G/DL (32.0-36.0); MEAN CORPUSCULAR VOLUME 98 FL (80-99); MEAN PLATELET VOLUME 6.8 FL (6.5-10.1); MONOCYTES % (AUTO) 7.1 % (1.0-10.0); NEUTROPHILS % (AUTO) 74.6 % (45.0-75.0); PLATELET COUNT 219 K/UL (150-450); RED BLOOD COUNT 4.39 M/UL (4.70-6.10); WHITE BLOOD COUNT 7.1 K/UL (4.8-10.8)
--- NOTE | 2016-12-24 09:30 | Cardiology Progress Note ---
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 cm chf mental retardation cri icd implantation copd hs pt uanble to provide any infor chart has not information at all icd interrogation shwoed rv lead malfucntion all labs form this am are penidng celestine have echo and ekg need ep to evaluate for icd lead celestine see family is has any infor [id number] contacted care providded icd starting to beep on friday called the copper plate printer was told to go to er [facility] coty is able to dress and shower and eat nto aware of sorroundign all the time mentral retartedation mi 8 years ago cad cabg [facility] 2008 chf icd impanted 2010 nkda sh no smoke no etoh Objective Last 24 Hour Vital Signs Date Time Temp Pulse Resp B/P Pulse Ox O2 Delivery O2 Flow Rate FiO2 12/24/16 08:48 120/73 12/24/16 08:48 98 120/73 12/24/16 08:25 97.2 98 18 120/73 97 Room Air 12/24/16 07:57 85 18 Room Air 21 12/24/16 04:00 81 12/24/16 03:56 98.4 79 19 128/84 93 Room Air 12/24/16 00:19 98.6 72 20 126/72 100 Room Air 12/24/16 00:00 73 12/23/16 21:53 77 120/80 12/23/16 20:35 98.1 77 16 120/80 97 Room Air 12/23/16 20:23 82 12/23/16 19:09 98.1 89 18 139/72 97 Room Air 12/23/16 19:09 98.1 89 18 139/72 97 Room Air 12/23/16 17:17 98.1 99 25 154/76 95 Room Air 12/23/16 16:55 98.1 95 16 165/87 94 Room Air Intake and Output 12/23/16 12/24/16 19:00 07:00 Intake Total 0 ml Balance 0 ml Intake Oral 0 ml Laboratory Tests Test 12/23/16 17:10 12/24/16 08:05 White Blood Count 9.1 K/UL (4.8-10.8) Pending Red Blood Count 4.27 M/UL (4.70-6.10) L Pending Hemoglobin 15.1 G/DL (14.2-18.0) Pending Hematocrit 41.9 % (42.0-52.0) L Pending Mean Corpuscular Volume 98 FL (80-99) Pending Mean Corpuscular Hemoglobin 35.3 PG (27.0-31.0) H Pending Mean Corpuscular Hemoglobin Concent 35.9 G/DL (32.0-36.0) Pending Red Cell Distribution Width 12.1 % (11.6-14.8) Pending Platelet Count 201 K/UL (150-450) Pending Mean Platelet Volume 6.4 FL (6.5-10.1) L Pending Neutrophils (%) (Auto) 63.2 % (45.0-75.0) Pending Lymphocytes (%) (Auto) 18.4 % (20.0-45.0) L Pending Monocytes (%) (Auto) 10.9 % (1.0-10.0) H Pending Eosinophils (%) (Auto) 6.6 % (0.0-3.0) H Pending Basophils (%) (Auto) 1.0 % (0.0-2.0) Pending Prothrombin Time 9.2 SEC (9.30-11.50) L Pending Prothromb Time International Ratio 0.9 (0.9-1.1) Pending Activated Partial Thromboplast Time 25 SEC (23-33) Pending Sodium Level 138 mEQ/L (135-145) Potassium Level 3.6 mEQ/L (3.4-4.9) Chloride Level 93 mEQ/L (98-107) L Carbon Dioxide Level 28 mEQ/L (20-30) Anion Gap 17 (5-15) H Blood Urea Nitrogen 19 mg/dL (7-23) Creatinine 1.4 mg/dL (0.7-1.2) H Estimat Glomerular Filtration Rate mL/min (>60) Glucose Level 186 mg/dL (74-106) H Calcium Level 9.6 mg/dL (8.6-10.2) Total Bilirubin 0.5 mg/dL (0.0-1.2) Aspartate Amino Transf (AST/SGOT) 20 U/L (5-40) Alanine Aminotransferase (ALT/SGPT) 14 U/L (3-41) Alkaline Phosphatase 58 U/L (40-129) Total Creatine Kinase 112 U/L (38-174) Creatine Kinase MB 1.7 ng/mL (< 6.7) Creatine Kinase MB Relative Index 1.5 Troponin I < 0.30 ng/mL (<=0.30) Pending Pro-B-Type Natriuretic Peptide 1146 pg/mL (0-450) H Total Protein 7.5 g/dL (6.6-8.7) Albumin 4.3 g/dL (3.5-5.2) Globulin 3.2 g/dL Albumin/Globulin Ratio 1.3 (1.0-2.7) Lipase 68 U/L (< 60) H C-Reactive Protein, Quantitative Pending Triglycerides Level Pending Cholesterol Level Pending LDL Cholesterol Pending HDL Cholesterol Pending Cholesterol/HDL Ratio Pending Thyroid Stimulating Hormone (TSH) Pending SHEBA SANDY Dec 24, 2016 09:30
[2016-12-24 09:32] LABS: PROTHROMBIN TIME 10.1 SEC (9.30-11.50)
[2016-12-24 09:37] LABS: CHOLESTEROL 178 mg/dL (< 200); CHOLESTEROL/HDL RATIO 3.1 (3.3-4.4); CRP QUANT < 0.3 mg/dL (< 0.5); HEMOLYSIS 6; LDL CHOLESTEROL (CALC.) 87 mg/dL (60-99)
[2016-12-24 09:40] LABS: TROPONIN I < 0.30 ng/mL (<=0.30)
--- NOTE | 2016-12-24 10:14 | Diagnostic Imaging Report ---
Indications: Chest pain Technique: Portable AP chest Findings: Comparison: 10/28/16 Cardiac silhouette remains normal in size. Pulmonary vasculature remains within normal limits. Lungs and pleura remain clear. Sternal wires, cardiomediastinal surgical clips, mild calcification of aortic arch, left chest wall pacemaker all again noted. IMPRESSION: No evidence of acute disease, unchanged Stable chronic changes as described
[2016-12-24 11:36] VITALS: BP 118/67
--- NOTE | 2016-12-24 14:38 | Consultation ---
DATE OF CONSULTATION: 12/24/2016 CARDIOLOGY CONSULTATION CONSULTING PHYSICIAN: Andrade Rebollar M.D. REFERRING PHYSICIAN: Milli Cobb M.D. REASON FOR REFERRAL: Possible ICD discharge. HISTORY OF PRESENT ILLNESS: This is an elderly gentleman with 76-year-old who has had multiple medical problems. He is completely unable to provide any meaningful history. He appears responsive and communicative Turk[place], but he really cannot provide any history. The nursing staff indicated that the patient actually has some mental retardation. The information is obtained from review of the chart. There is no really any emergency room physician data and I was told that the patient may have had either chest pain or ICD discharge, but that again is just based on consultation and the patient is unable to provide any meaningful history whatsoever. Other chart from other ER visits here of hospital visits indicated that he has a history of respiratory failure secondary to COPD, chronic kidney disease, pacemaker and a defibrillator history, acute tubular necrosis, chronic renal insufficiency, mild rhabdomyolysis, moderate pulmonary edema, diabetes mellitus, developmental delay. ALLERGIES: The patient reportedly has no known drug allergies. SOCIAL HISTORY: He is reportedly from a boarding care facility, although no records to document that are available in the chart. REVIEW OF SYSTEMS: Really unable to obtain. PHYSICAL EXAMINATION: GENERAL: Shows to be elderly gentleman, in no respiratory distress sitting up. NECK: Supple. No jugular venous distention. LUNGS: Appear to show decreased breath sounds bilaterally and decreased air movement. CARDIAC: Show regular rate and rhythm. No heaves, thrills, or gallops noted. ABDOMEN: Soft and nontender. Positive bowel sounds. EXTREMITIES: There is no clubbing, cyanosis, nor is there any edema. NEUROLOGIC: He is awake, alert, responsive, and in no apparent respiratory distress. LABORATORY AND DIAGNOSTIC DATA: Laboratory values from today are pending, but yesterday white count of 9.1, hemoglobin 15.1, and platelet count of 201,000. Sodium is 138, potassium 3.6, chloride 93, bicarbonate of 28, BUN of 19, creatinine 1.4, and glucose of 186. CK is 112. His troponin at least the first one was less than 0.3. ProBNP was 1146. Lipase of 68. Liver function tests are otherwise unremarkable. Lipids are pending at this time. Coags of yesterday INR 0.9, and PTT of 25 and unfortunately no other information is available. I am unable to download his chest x-ray or find out if everything is performed. EKG shows delayed R-wave progression some Q-waves in lead 3 only, nonsignificant, but QS waves in V1 through V3. ICD interrogation has been performed and did represent from the defibrillated company that it appears that the patient has had a high threshold of the RV leads for some time. There was no defibrillator discharges and the function except for the RV leads appears to be intact according them. ASSESSMENT AND PLAN: 1. Questionable chest pain. 2. Questionable implantable cardioverter-defibrillator discharge by history. 3. History of chronic renal insufficiency. 4. Chronic obstructive pulmonary disease. 5. Mental retardation. 6. Implantable cardioverter-defibrillator right ventricular lead malfunction. Dr. Cobb, this patient was seen in cardiac consultation. I have no information on this patient. I cannot obtain any history. There is no old records and I cannot find the records at [facility] and information is limited to what is available here. Laboratory results are pending. An echocardiogram should be performed, need electrophysiology at some point to evaluate his ICD. RV lead that seems to be malfunctioning. Andrade Rebollar M.D. DR: Sean JOB#: [id number] CC:
[2016-12-24 15:46] VITALS: BP 101/59
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
--- NOTE | 2016-12-24 19:26 | Consultation ---
Consult Note Consult Note Cardiac EP full note dictated #[id number] JOE NEGRO Dec 24, 2016 19:26
[2016-12-24 20:00] VITALS: BP 122/66
--- NOTE | 2016-12-24 20:21 | Cardiology Report ---
APPROVED REPORT EXAM: Two-dimensional and M-mode echocardiogram with Doppler and color Doppler. INDICATION LV function M-Mode DIMENSIONS IVSd0.5 (0.7-1.1cm)Left Atrium (MM)4.3 (1.6-4.0cm) LVDd4.8 (3.5-5.6cm)Aortic Root2.6 (2.0-3.7cm) IVSs0.6 cm LVDs4.1 (2.5-4.0cm) PWs2.1 cm Left ventricular chamber size at upper limits of normal. Global left ventricular severe hypokinesis to the extent visulaized Left ventricular ejection fraction estimated to be 15 %., however, this study quality precludes accurate assessment of regional wall motio and EF No evidence of left ventricular hypertrophy. Anterior Echo-free space, may be due to pericardial fat or effusion. Mild bi-atrial enlargement. Right ventricular chamber size is within normal limits. Focal aortic valve sclerosis with adequate cusp excursion. Thickened mitral valve leaflets with normal excursion. Mitral annulus and aortic root calcification. Pulmonic valve not well visualized. Normal tricuspid valve structure. IVC at normal size with physiologic collapse. Pacemaker wire present in the right side chambers. A color flow and spectral Doppler study was performed and revealed: at least moderate mitral regurgitation. Mitral diastolic velocities suggest reduced left ventricular relaxation c/w mild LV diastolic dysfunction (Grade I ). Mild tricuspid regurgitation. Tricuspid systolic velocities suggests peak right ventricular systolic pressure of 31 mmHg. Pulmonic regurgitation present.
--- NOTE | 2016-12-24 23:07 | Consultation ---
DATE OF CONSULTATION: CARDIAC ELECTROPHYSIOLOGY CONSULT REQUESTING PHYSICIAN: Andrade Rebollar M.D. REASON FOR CONSULT: ICD alert. HISTORY OF PRESENT ILLNESS: Limited history is obtainable from the patient, who has developmental delay and is unable to give much history. Remainder of history is obtained from the chart and treating providers. The patient is a 76-year-old man with a history of coronary artery disease, remote history of coronary artery bypass graft surgery, ischemic cardiomyopathy with ejection fraction less than 20%, status post placement of a dual-chamber ICD in 2010. He presented stating that his device had fired a few days prior to presentation. He had chest pain subsequently. The ICD was evaluated and he was not found to have any ICD shocks, but had an ICD alert. Cardiac electrophysiology follow up was requested. PAST MEDICAL HISTORY: As noted above. MEDICATIONS: Lasix 20 mg Friday, Friday, and Friday, folic acid 1 mg daily, Aldactone 12.5 mg daily, Flomax 0.4 mg daily, aspirin 162 mg daily, Protonix 40 mg daily, lisinopril 2.5 mg daily, subcutaneous heparin 5000 units b.i.d., carvedilol 3.125 mg p.o. q.12 hours, DuoNeb nebulizer q.4 hours p.r.n., insulin sliding scale, Tylenol p.r.n., and Zofran p.r.n. ALLERGIES: No known drug allergies. SOCIAL HISTORY: No history of tobacco or alcohol abuse. PHYSICAL EXAMINATION: VITAL SIGNS: Blood pressure is 101/59, pulse 76, regular, respirations 18, afebrile, and oxygen saturation 97% on room air. GENERAL: The patient is an alert, well-developed male, in no acute distress. HEENT: Normocephalic and atraumatic. Pupils are equal, round, and reactive to light. Sclerae anicteric. Oral mucosa are moist. NECK: Supple. There is no jugular venous distention. Carotid pulses are 2+ bilaterally without bruits. LUNGS: Clear to auscultation bilaterally. HEART: Regular rate and rhythm. PMI not felt. Normal S1 and S2 with no murmur. No rubs or S3. ABDOMEN: Soft, obese, and nontender. No palpable mass. EXTREMITIES: 1+ pedal edema bilaterally. SKIN: There are small brownish maculopapular lesions of the distal lower extremities bilaterally. LABORATORY AND DIAGNOSTIC DATA: Imaging studies, chest x-ray shows cardiomegaly and dual-chamber ICD with leads entering from the left to the right atrium and right ventricle. Laboratory data, hemoglobin 14, white blood count 7100, and platelets 219,000. Troponin less than 0.3. BUN 19, creatinine 1.4, and potassium 3.6. EKG shows sinus rhythm at a rate of 78 beats per minute. Occasional premature ventricular complex axis +60 degrees, left atrial enlargement. Poor R-wave progression V1 to V3 (no old EKG available for comparison). Echo preliminary report shows global severe hypokinesis, septal dyskinesis, and ejection fraction of approximately 15%, moderate mitral regurgitation and mild tricuspid regurgitation. ICD interrogation, the ICD is a Medtronic Protecta XT VR implanted in 04/2011, lead impedance in the atrium at 513 ohms in the right ventricle greater than 3000 ohms, high-voltage lead impedance 47 and 59 ohms pacing threshold is 0.5 volts at 0.4 milliseconds, in the atrium, 4.5 volts at 1.5 milliseconds in the ventricle. R waves are 8.8 millivolts P waves 1.5 millivolts. There have been episodes of nonsustained VT, but no ICD therapies since 05/2016, the time of the last ICD interrogation. ASSESSMENT AND RECOMMENDATIONS: The patient is a 76-year-old man with ischemic cardiomyopathy, status post dual-chamber ICD, who was admitted with what was felt to be an ICD shock, but appears to be an audible alarm on the ICD due to elevated right ventricular pacing lead impedance, the lead senses paces at high thresholds and has high impedance consistent with impending fracture. There is possibility of a loose set screw though as the device was placed several years ago. This would appear to be less likely. Lead revision is favored. This can be done electively as an outpatient. He is not pacemaker dependent and has not had any appropriate ICD therapies since the device was last checked several months ago. Glo Blanco M.D. DR: Sage JOB#: [id number] CC:
[2016-12-24 23:52] LABS: TROPONIN I < 0.30 ng/mL (<=0.30)
[2016-12-25] VITALS: BP 101/63
[2016-12-25 04:00] VITALS: BP 108/67
[2016-12-25] MEDS: NovoLOG Insulin Flexpen SUBQ SCH ×4 (06:27→21:10)
[2016-12-25] MEDS: Heparin 5000 units/ml inj SUBQ SCH ×3 (06:28→21:13)
[2016-12-25 07:42] VITALS: BP 118/76
[2016-12-25 08:23] LABS: TROPONIN I < 0.30 ng/mL (<=0.30)
[2016-12-25] MEDS: Aspirin Baby 81mg ORAL SCH (08:49)
[2016-12-25] MEDS: Lisinopril 2.5mg tab ORAL SCH (08:49)
[2016-12-25] MEDS: Tamsulosin 0.4mg cap ORAL SCH (08:50)
[2016-12-25] MEDS: Spironolactone 25mg tab ORAL SCH (08:50)
[2016-12-25 11:22] VITALS: BP 105/65
--- NOTE | 2016-12-25 15:15 | History and Physical ---
History of Present Illness General Date patient seen: Dec 24, 2016 Time patient seen: 11:00 Reason for Hospitalization: General Complaint Present Illness HPI 76 year old Irish male with hx of dementia, cardiomyopathy presented to ER by paramedics with complaints of chest pain. He had defibrillator fire about 3 days ago, Patient had off-and-on pain since then. He is admitted to telemetry for further evaluation Allergies: Coded Allergies: No Known Allergies (Verified Allergy, Unknown, 02/03/08) Medication History Scheduled Aspirin* (Aspir 81*), 81 MG ORAL DAILY, (Reported) Benazepril Hcl (Benazepril Hcl), 2.5 MG ORAL HS, (Reported) Carvedilol* (Carvedilol*), 3.125 MG ORAL EVERY 12 HOURS, (Reported) Desonide (Desonide), 15 GM TP PRN, (Reported) Folic Acid* (Folic Acid*), 1 MG ORAL DAILY, (Reported) Ketoconazole (Ketoconazole), 120 ML TP DAILY, (Reported) Metformin Hcl* (Metformin Hcl*), 500 MG ORAL TWICE A DAY, (Reported) Montelukast Sodium* (Montelukast Sodium*), 10 MG ORAL DAILY, (Reported) Multivitamin W/Iron, Minerals (Multivitamins With Iron), 1 TAB ORAL DAILY, ( Reported) Simvastatin (Zocor), 40 MG ORAL BEDTIME, (Reported) Spironolactone* (Aldactone*), 12.5 MG ORAL DAILY, (Reported) Tamsulosin Hcl (Tamsulosin Hcl*), 0.4 MG ORAL DAILY, (Reported) Scheduled PRN Furosemide* (Lasix*), 20 MG ORAL DAILY PRN for take on Mon,Wed,Fri, (Reported) Miscellaneous Medications Halobetasol Propionate (Halobetasol Propionate), 15 GM TP, (Reported) Discontinued Medications Ipratropium/Albuterol Sulfate (DuoNeb 0.5-3(2.5)mg/3ml), 3 ML HHN Q4H PRN Discontinued Reason: Pt stopped taking med Theophylline (Theodur*), 100 MG ORAL EVERY 12 HOURS Discontinued Reason: Pt stopped taking med Patient History Healthcare decision maker Resuscitation status Advanced Directive on File No Past Medical/Surgical History Past Medical/Surgical History: (1) ICD (implantable cardioverter-defibrillator) battery depletion (2) Dementia Review of Systems All Other Systems: negative except mentioned in HPI Physical Exam General Appearance: WD/WN, no apparent distress Lines, tubes and drains: peripheral HEENT: normocephalic, atraumatic Neck: non-tender, normal alignment Respiratory/Chest: chest wall non-tender, lungs clear Cardiovascular/Chest: normal peripheral pulses, normal rate Abdomen: normal bowel sounds, non tender Genitourinary/Rectal: normal genital exam, normal rectal exam Last 24 Hour Vital Signs Date Time Temp Pulse Resp B/P Pulse Ox O2 Delivery O2 Flow Rate FiO2 12/25/16 11:22 97.5 90 20 105/65 97 Room Air 12/25/16 08:51 104 118/76 12/25/16 08:49 118/76 12/25/16 07:42 97.0 104 18 118/76 100 Room Air 12/25/16 04:00 97.7 76 18 108/67 97 Room Air 21 12/25/16 04:00 67 12/25/16 00:00 85 12/25/16 00:00 97.7 76 18 101/63 97 Room Air 21 12/24/16 21:13 75 122/66 12/24/16 20:00 97.7 87 18 122/66 97 Room Air 21 12/24/16 20:00 78 12/24/16 19:15 91 18 Room Air 21 12/24/16 16:24 76 12/24/16 15:46 97.7 76 18 101/59 97 Room Air Intake and Output 12/24/16 12/25/16 19:00 07:00 Intake Total 360 ml Balance 360 ml Intake Oral 360 ml # Voids 3 Laboratory Tests Test 12/24/16 23:30 12/25/16 05:51 Troponin I < 0.30 ng/mL (<=0.30) < 0.30 ng/mL (<=0.30) Pro-B-Type Natriuretic Peptide 1074 pg/mL (0-450) H Height (Feet): 5 Height (Inches): 7.00 Weight (Pounds): 156 Medications Current Medications Medications (Trade) Dose Ordered Sig/Hemant Route PRN Reason Start Time Stop Time Status Last Admin Dose Admin Acetaminophen (Tylenol) 650 mg Q4H PRN ORAL FEVER 12/23/16 19:00 01/22/17 18:59 Albuterol/ Ipratropium (DuoNeb 0.5-3(2.5)mg/3ml) 3 ml Q4H PRN HHN Shortness of Breath 12/23/16 19:00 12/28/16 18:59 Aspirin (ASA) 162 mg DAILY ORAL 12/24/16 09:00 01/23/17 08:59 12/25/16 08:49 Carvedilol (Coreg) 3.125 mg EVERY 12 HOURS ORAL 12/23/16 21:00 01/22/17 20:59 12/25/16 08:51 Dextrose (Dextrose 50%) STAT PRN IV Hypoglycemia 12/23/16 19:00 01/22/17 18:59 Diltiazem HCl (Cardizem) 10 mg Q1H PRN IV HR > 120 12/23/16 19:00 01/22/17 18:59 Enalaprilat (Vasotec) 2.5 mg Q6H PRN IV SBP > 160 12/23/16 19:00 01/22/17 18:59 Folic Acid (Folate) 1 mg DAILY ORAL 12/24/16 09:00 01/23/17 08:59 12/25/16 08:51 Furosemide (Lasix) 20 mg MON-FRI-FRI@0900 ORAL 12/25/16 09:00 01/24/17 08:59 12/25/16 08:51 Heparin Sodium (Porcine) (Heparin 5000 units/ml) 5,000 units EVERY 8 HOURS SUBQ 12/23/16 22:00 01/22/17 21:59 12/25/16 13:12 Insulin Aspart (NovoLOG) BEFORE MEALS AND HS SUBQ 12/23/16 21:00 01/22/17 20:59 12/25/16 12:04 Lisinopril (Zestril) 2.5 mg DAILY ORAL 12/24/16 09:00 01/23/17 08:59 12/25/16 08:49 Morphine Sulfate (Morphine Sulfate) 2 mg Q4H PRN IVP severe Pain (Pain Scale 7-10) 12/23/16 19:00 12/30/16 18:59 Nitroglycerin (Ntg) 0.4 mg Q5MIN X 3 DOSES PRN SL Prn Chest Pain 12/23/16 19:00 01/22/17 18:59 Ondansetron HCl (Zofran) 4 mg Q6H PRN IVP Nausea & Vomiting 12/23/16 19:00 01/22/17 18:59 Pantoprazole (Protonix) 40 mg DAILY ORAL 12/24/16 09:00 01/23/17 08:59 12/25/16 08:49 Polyethylene Glycol (Miralax) 17 gm DAILYPRN PRN ORAL Constipation 12/23/16 19:00 01/22/17 18:59 Spironolactone (Aldactone) 12.5 mg DAILY ORAL 12/24/16 09:00 01/23/17 08:59 12/25/16 08:50 Tamsulosin HCl (Flomax) 0.4 mg DAILY ORAL 12/24/16 09:00 01/23/17 08:59 12/25/16 08:50 Temazepam (Restoril) 15 mg HSPRN PRN ORAL Insomnia 12/23/16 19:00 12/30/16 18:59 Assessment/Plan Problem List: (1) ACS (acute coronary syndrome) ICD Codes: I24.9 - Acute ischemic heart disease, unspecified SNOMED: 484953998 (2) Costochondritis, acute ICD Codes: M94.0 - Chondrocostal junction syndrome [Tietze] SNOMED: 98838102 (3) ICD (implantable cardioverter-defibrillator) battery depletion ICD Codes: Z45.02 - Encounter for adjustment and management of automatic implantable cardiac defibrillator SNOMED: 041619582, 679554652 (4) Dementia ICD Codes: F03.90 - Unspecified dementia without behavioral disturbance SNOMED: 98704956 Assessment/Plan serial ekg, troponin cardio to see echocardiogram social service dvt prophylaxis JASE COSTA Dec 25, 2016 15:15
--- NOTE | 2016-12-25 15:20 | Pulmonology Progress Note ---
Assessment/Plan Problems: (1) ACS (acute coronary syndrome) (2) Costochondritis, acute (3) ICD (implantable cardioverter-defibrillator) battery depletion (4) Dementia Assessment/Plan echo showing ef of 15% electrophysiology to see. serial troponin and ekg were negative Subjective ROS Limited/Unobtainable: No Interval Events: asymptomatic Allergies: Coded Allergies: No Known Allergies (Verified Allergy, Unknown, 02/03/08) Objective Last 24 Hour Vital Signs Date Time Temp Pulse Resp B/P Pulse Ox O2 Delivery O2 Flow Rate FiO2 12/25/16 11:22 97.5 90 20 105/65 97 Room Air 12/25/16 08:51 104 118/76 12/25/16 08:49 118/76 12/25/16 07:42 97.0 104 18 118/76 100 Room Air 12/25/16 04:00 97.7 76 18 108/67 97 Room Air 21 12/25/16 04:00 67 12/25/16 00:00 85 12/25/16 00:00 97.7 76 18 101/63 97 Room Air 21 12/24/16 21:13 75 122/66 12/24/16 20:00 97.7 87 18 122/66 97 Room Air 21 12/24/16 20:00 78 12/24/16 19:15 91 18 Room Air 21 12/24/16 16:24 76 12/24/16 15:46 97.7 76 18 101/59 97 Room Air Intake and Output 12/24/16 12/25/16 19:00 07:00 Intake Total 360 ml Balance 360 ml Intake Oral 360 ml # Voids 3 General Appearance: WD/WN HEENT: normocephalic, atraumatic Respiratory/Chest: chest wall non-tender, lungs clear Cardiovascular: normal peripheral pulses, regular rhythm Abdomen: normal bowel sounds, soft, non tender Genitourinary: normal external genitalia Extremities: no cyanosis Skin: no rash Laboratory Tests 12/24/16 23:30: Troponin I < 0.30 12/25/16 05:51: Troponin I < 0.30, Pro-B-Type Natriuretic Peptide 1074H Current Medications Medications (Trade) Dose Ordered Sig/Hemant Route PRN Reason Start Time Stop Time Status Last Admin Dose Admin Acetaminophen (Tylenol) 650 mg Q4H PRN ORAL FEVER 12/23/16 19:00 5/24/17 18:59 Albuterol/ Ipratropium (DuoNeb 0.5-3(2.5)mg/3ml) 3 ml Q4H PRN HHN Shortness of Breath 12/23/16 19:00 12/28/16 18:59 Aspirin (ASA) 162 mg DAILY ORAL 12/24/16 09:00 01/23/17 08:59 12/25/16 08:49 Carvedilol (Coreg) 3.125 mg EVERY 12 HOURS ORAL 12/23/16 21:00 01/22/17 20:59 12/25/16 08:51 Dextrose (Dextrose 50%) STAT PRN IV Hypoglycemia 12/23/16 19:00 01/22/17 18:59 Diltiazem HCl (Cardizem) 10 mg Q1H PRN IV HR > 120 12/23/16 19:00 01/22/17 18:59 Enalaprilat (Vasotec) 2.5 mg Q6H PRN IV SBP > 160 12/23/16 19:00 01/22/17 18:59 Folic Acid (Folate) 1 mg DAILY ORAL 12/24/16 09:00 01/23/17 08:59 12/25/16 08:51 Furosemide (Lasix) 20 mg FRI-FRI-FRI@0900 ORAL 12/25/16 09:00 01/24/17 08:59 12/25/16 08:51 Heparin Sodium (Porcine) (Heparin 5000 units/ml) 5,000 units EVERY 8 HOURS SUBQ 12/23/16 22:00 01/22/17 21:59 12/25/16 13:12 Insulin Aspart (NovoLOG) BEFORE MEALS AND HS SUBQ 12/23/16 21:00 01/22/17 20:59 12/25/16 12:04 Lisinopril (Zestril) 2.5 mg DAILY ORAL 12/24/16 09:00 01/23/17 08:59 12/25/16 08:49 Morphine Sulfate (Morphine Sulfate) 2 mg Q4H PRN IVP severe Pain (Pain Scale 7-10) 12/23/16 19:00 12/30/16 18:59 Nitroglycerin (Ntg) 0.4 mg Q5MIN X 3 DOSES PRN SL Prn Chest Pain 12/23/16 19:00 01/22/17 18:59 Ondansetron HCl (Zofran) 4 mg Q6H PRN IVP Nausea & Vomiting 12/23/16 19:00 01/22/17 18:59 Pantoprazole (Protonix) 40 mg DAILY ORAL 12/24/16 09:00 01/23/17 08:59 12/25/16 08:49 Polyethylene Glycol (Miralax) 17 gm DAILYPRN PRN ORAL Constipation 12/23/16 19:00 01/22/17 18:59 Spironolactone (Aldactone) 12.5 mg DAILY ORAL 12/24/16 09:00 01/23/17 08:59 12/25/16 08:50 Tamsulosin HCl (Flomax) 0.4 mg DAILY ORAL 12/24/16 09:00 01/23/17 08:59 12/25/16 08:50 Temazepam (Restoril) 15 mg HSPRN PRN ORAL Insomnia 12/23/16 19:00 12/30/16 18:59 JASE COSTA Dec 25, 2016 15:20
[2016-12-25 15:35] VITALS: BP 101/60
--- NOTE | 2016-12-25 18:57 | Cardiology Progress Note ---
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 Subjective Cardiovascular: Denies: chest pain Respiratory: Denies: shortness of breath Gastrointestinal/Abdominal: Denies: abdominal pain Genitourinary: Denies: burning Objective Last 24 Hour Vital Signs Date Time Temp Pulse Resp B/P Pulse Ox O2 Delivery O2 Flow Rate FiO2 12/25/16 15:35 97.2 81 18 101/60 96 Room Air 12/25/16 11:22 97.5 90 20 105/65 97 Room Air 12/25/16 08:51 104 118/76 12/25/16 08:49 118/76 12/25/16 07:42 97.0 104 18 118/76 100 Room Air 12/25/16 04:00 97.7 76 18 108/67 97 Room Air 21 12/25/16 04:00 67 12/25/16 00:00 85 12/25/16 00:00 97.7 76 18 101/63 97 Room Air 21 12/24/16 21:13 75 122/66 12/24/16 20:00 97.7 87 18 122/66 97 Room Air 21 12/24/16 20:00 78 12/24/16 19:15 91 18 Room Air 21 General Appearance: alert Neck: no JVD Cardiovascular: normal rate, regular rhythm Respiratory/Chest: lungs clear, normal breath sounds Abdomen: non tender, soft Extremities: no swelling Intake and Output 12/24/16 12/25/16 19:00 07:00 Intake Total 360 ml Balance 360 ml Intake Oral 360 ml # Voids 3 Laboratory Tests Test 12/24/16 23:30 12/25/16 05:51 Troponin I < 0.30 ng/mL (<=0.30) < 0.30 ng/mL (<=0.30) Pro-B-Type Natriuretic Peptide 1074 pg/mL (0-450) H SHEBA SANDY Dec 25, 2016 18:56
[2016-12-25 20:18] VITALS: BP 99/58
[2016-12-26 00:15] VITALS: BP 101/63
[2016-12-26 04:30] VITALS: BP 111/71
[2016-12-26] MEDS: NovoLOG Insulin Flexpen SUBQ SCH ×2 (06:23→11:52)
[2016-12-26] MEDS: Heparin 5000 units/ml inj SUBQ SCH (06:23)
[2016-12-26 08:29] VITALS: BP 111/75
[2016-12-26] MEDS: Aspirin Baby 81mg ORAL SCH (08:41)
[2016-12-26] MEDS: Spironolactone 25mg tab ORAL SCH (08:41)
[2016-12-26] MEDS: Lisinopril 2.5mg tab ORAL SCH (08:42)
[2016-12-26] MEDS: Tamsulosin 0.4mg cap ORAL SCH (08:42)
--- NOTE | 2016-12-26 12:11 | Pulmonology Progress Note ---
Assessment/Plan Problems: (1) ACS (acute coronary syndrome) (2) Costochondritis, acute (3) ICD (implantable cardioverter-defibrillator) battery depletion (4) Dementia Assessment/Plan echo showing ef of 15% electrophysiology to see. serial troponin and ekg were negative cardio cleared for discharge for now the lead for ICD needs to be changed electively Subjective ROS Limited/Unobtainable: No Constitutional: Reports: no symptoms HEENT: Repors: no symptoms Respiratory: Reports: no symptoms Allergies: Coded Allergies: No Known Allergies (Verified Allergy, Unknown, 02/03/08) Objective Last 24 Hour Vital Signs Date Time Temp Pulse Resp B/P Pulse Ox O2 Delivery O2 Flow Rate FiO2 12/26/16 08:42 111/75 12/26/16 08:42 81 111/75 12/26/16 08:29 97.0 81 18 111/75 99 Room Air 12/26/16 08:00 85 12/26/16 04:30 98.0 86 20 111/71 95 Room Air 12/26/16 04:00 76 12/26/16 00:15 97.0 77 20 101/63 96 Room Air 12/26/16 00:00 72 12/25/16 21:08 75 105/60 12/25/16 20:18 97.9 79 20 99/58 98 Room Air 12/25/16 20:00 79 12/25/16 19:50 92 18 Room Air 12/25/16 16:00 79 12/25/16 15:35 97.2 81 18 101/60 96 Room Air Intake and Output 12/25/16 12/26/16 19:00 07:00 Intake Total 600 ml Balance 600 ml Intake Oral 600 ml # Voids 4 2 General Appearance: WD/WN, no acute distress HEENT: normocephalic, atraumatic Respiratory/Chest: chest wall non-tender, lungs clear Cardiovascular: normal peripheral pulses, normal rate Abdomen: normal bowel sounds, soft, non tender Extremities: no cyanosis Neurologic/Psychiatric: dean for student affairs II-XII grossly normal Microbiology Date/Time Source Procedure Growth Status 12/23/16 21:20 Nasal Nares MRSA Culture - Final NO METHICILLIN RESISTANT STAPH AUREUS... Complete 12/23/16 18:20 Rectum VRE Culture - Final NO VANCOMYCIN RESISTANT ENTEROCOCCUS ... Complete Current Medications Medications (Trade) Dose Ordered Sig/Hemant Route PRN Reason Start Time Stop Time Status Last Admin Dose Admin Acetaminophen (Tylenol) 650 mg Q4H PRN ORAL FEVER 12/23/16 19:00 01/22/17 18:59 Albuterol/ Ipratropium (DuoNeb 0.5-3(2.5)mg/3ml) 3 ml Q4H PRN HHN Shortness of Breath 12/23/16 19:00 12/28/16 18:59 Aspirin (ASA) 162 mg DAILY ORAL 12/24/16 09:00 01/23/17 08:59 12/26/16 08:41 Carvedilol (Coreg) 3.125 mg EVERY 12 HOURS ORAL 12/23/16 21:00 01/22/17 20:59 12/26/16 08:42 Dextrose (Dextrose 50%) STAT PRN IV Hypoglycemia 12/23/16 19:00 01/22/17 18:59 Diltiazem HCl (Cardizem) 10 mg Q1H PRN IV HR > 120 12/23/16 19:00 01/22/17 18:59 Enalaprilat (Vasotec) 2.5 mg Q6H PRN IV SBP > 160 12/23/16 19:00 01/22/17 18:59 Folic Acid (Folate) 1 mg DAILY ORAL 12/24/16 09:00 01/23/17 08:59 12/26/16 08:42 Furosemide (Lasix) 20 mg MON-WED-FRI@0900 ORAL 12/25/16 09:00 01/24/17 08:59 12/25/16 08:51 Heparin Sodium (Porcine) (Heparin 5000 units/ml) 5,000 units EVERY 8 HOURS SUBQ 12/23/16 22:00 01/22/17 21:59 12/26/16 06:23 Insulin Aspart (NovoLOG) BEFORE MEALS AND HS SUBQ 12/23/16 21:00 01/22/17 20:59 12/26/16 11:52 Lisinopril (Zestril) 2.5 mg DAILY ORAL 12/24/16 09:00 01/23/17 08:59 12/26/16 08:42 Morphine Sulfate (Morphine Sulfate) 2 mg Q4H PRN IVP severe Pain (Pain Scale 7-10) 12/23/16 19:00 12/30/16 18:59 Nitroglycerin (Ntg) 0.4 mg Q5MIN X 3 DOSES PRN SL Prn Chest Pain 12/23/16 19:00 01/22/17 18:59 Ondansetron HCl (Zofran) 4 mg Q6H PRN IVP Nausea & Vomiting 12/23/16 19:00 01/22/17 18:59 Pantoprazole (Protonix) 40 mg DAILY ORAL 12/24/16 09:00 01/23/17 08:59 12/26/16 08:42 Polyethylene Glycol (Miralax) 17 gm DAILYPRN PRN ORAL Constipation 12/23/16 19:00 01/22/17 18:59 Spironolactone (Aldactone) 12.5 mg DAILY ORAL 12/24/16 09:00 01/23/17 08:59 12/26/16 08:41 Tamsulosin HCl (Flomax) 0.4 mg DAILY ORAL 12/24/16 09:00 01/23/17 08:59 12/26/16 08:42 Temazepam (Restoril) 15 mg HSPRN PRN ORAL Insomnia 12/23/16 19:00 12/30/16 18:59 JASE COSTA Dec 26, 2016 12:11
[2016-12-26 12:26] VITALS: BP 101/58
[2016-12-26] MEDS ORDERED: NS 275ml ONE (14:29)
[2016-12-26] MEDS ORDERED: Tubing IV Secondary IV ONE (14:29)
--- NOTE | 2016-12-27 13:02 | Discharge Summary ---
Discharge Summary Hospital Course Date of Admission Dec 23, 2016 at 19:00 Date of Discharge Dec 26, 2016 at 14:30 Admitting Diagnosis ACS HPI Onesimo Sen is a 76 year old male who was admitted on Dec 23, 2016 at 19:00 for Acute Coronary Syndrome Hospital Course [id number] Discharge Discharge Disposition Patient was discharged to [facility] (01) Discharge Diagnoses: Evi Garay NP Dec 27, 2016 13:02
--- NOTE | 2016-12-27 17:29 | Diagnostic Imaging Report ---
APPROVED REPORT CPT Code: 13734 Present Symptoms Shortness of breath Comments: Lt chest defibrillator, COPD, CHF. Difficult patient to scan due to confusion, restlessness, and abrupt periodic movement. RIGHT UPPER EXTREMITY: Venous imaging reveals patency of the internal jugular, subclavian, axillary and brachial veins. The cephalic and basilic veins are also patent. Doppler indicates normal spontaneous flow within these venous segments. LEFT UPPER EXTREMITY: Venous imaging reveals non-occlusive, acute thrombus in the internal jugular vein. There is no evidence of thrombus in the subclavian, axillary and brachial vein segments. Doppler indicates normal spontaneous flow within these venous segments. The cephalic and basilic veins are also patent. KYM Granda was informed of abnormal results at 19:45 hrs.
--- NOTE | 2016-12-27 17:30 | Diagnostic Imaging Report ---
APPROVED REPORT CPT Code: 21712 Present Symptoms Comments: Pain BILATERAL: Imaging reveals a patent deep venous system bilaterally. There is no evidence of thrombus within the femoral, popliteal or tibial segments. The greater saphenous veins are also within normal limits. Doppler indicates normal spontaneous flow within these segments.
--- NOTE | 2016-12-28 00:58 | Discharge Summary 2 SIG ---
DATE OF ADMISSION: 12/23/2016 DATE OF DISCHARGE: 12/26/2016 CONSULTANTS: 1. Andrade Rebollar M.D. 2. Glo Blanco M.D. BRIEF HOSPITAL COURSE: The patient is a 76-year-old male with history of dementia, cardiomyopathy, presented to ED by paramedics with complaints of chest pain. The patient is unable to provide any meaningful history from chart. The pacemaker was making some noise and [employer] instructed to take patient to ED for further evaluation. During the course of hospital stay, he was followed by Dr. Rebollar and Dr. Blanco [employer] glazer. He is status post myocardial infarction 8 years ago and had a coronary artery disease with coronary artery bypass graft done in 2008 at [facility] and had an ICD implanted in 2010. He has history of mental retardation. ICD was evaluated and he was not found to have any ICD shocks, but had an ICD alert. Interrogation done. ICD is a Medtronic Protecta XT VR. There have been episodes of nonsustained ventricular tachycardia, but no ICD therapy since May 2016, the time of last ICD interrogation. EKG showed delayed in R-wave progression with some Q-waves in lead 3 only, non-significant, but QS waves in V1 to V3. Echo report showed global severe hypokinesis, septal dyskinesis, and ejection fraction of 15%. Moderate mitral regurgitation and mild tricuspid regurgitation. There was no ICD shock delivered, but appeared to be an audible alarm on the ICD due to elevated right ventricular pacing lead impedance. The lead senses spaces at high thresholds and has high impedance consistent with impending fracture. There is a possibility of a loose set screw through the device that was placed several years ago. Lead revision is favored and can be done electively as an outpatient. He was then cleared for discharge to follow up with the [facility] under his health plan. FINAL DIAGNOSES: 1. ICD right ventricular lead malfunction. 2. Coronary artery disease, status post coronary artery bypass graft. 3. Cardiomyopathy. 4. Congestive heart failure, acute on chronic systolic congestive heart failure. 5. Mental retardation. 6. Pacemaker. 7. Dementia. 8. Acute costochondritis. Milli Cobb M.D. I have been assigned to dictate discharge summary on this account and I was not involved in the patient's management. Evi Garay N.P. DR: BOUCHRA JOB#: [id number] CC:
== END 2016-12-26 14:30 | DRG 308 ==
LOC: EMR 17:59 → EDBEDREQ 18:36 → OBSVTOIN 19:00 → 2E 19:00 → EDBEDREQ 19:07
DX: T82.110A Breakdown (mechanical) of cardiac electrode, initial encounter (principal); I50.23 Acute on chronic systolic (congestive) heart failure; I24.9 Acute ischemic heart disease, unspecified; I25.5 Ischemic cardiomyopathy; F03.90 Unspecified dementia, unspecified severity, without behavioral disturbance, psychotic disturbance, mood disturbance, and anxiety; J44.9 Chronic obstructive pulmonary disease, unspecified; Z95.810 Presence of automatic (implantable) cardiac defibrillator; Y84.8 Other medical procedures as the cause of abnormal reaction of the patient, or of later complication, without mention of misadventure at the time of the procedure; Z95.1 Presence of aortocoronary bypass graft; F79 Unspecified intellectual disabilities; M94.0 Chondrocostal junction syndrome [Tietze]; N18.9 Chronic kidney disease, unspecified
CPT/HCPCS: 36415; 71010; 80053; 80061; 82550; 82553; 82962; 83690; 83880; 84443; 84484; 85025; 85610; 85730; 86140; 87081; 93005; 93306; 93970; 94664; J1815; J7620

== ENCOUNTER 2019-10-19 22:05 | Inpatient (IN) | payer OTHER, MEDICAID ==
[~2019-10-19] VITALS: Ht 175.3 cm; Wt 73.0 kg
[~2019-10-19 22:05] MED LIST changes: +ASPIR 8181 MG ORAL; +BENAZEPRIL HCL5 MG ORAL; +CARVEDILOL3.125 MG ORAL; +DESONIDE15 GM TP; +FOLIC ACID1 MG ORAL; +FUROSEMIDE20 M1 ORAL; +HALOBETASOL PRO15 GM TP; +KETOCONAZOLE120 ML TP; +METFORMIN HCL500 M1 ORAL; +MONTELUKAST SOD10 MG ORAL; +MULTIVITAMINS1 EAC3 ORAL; +SIMVASTATIN40 MG ORAL; +SPIRONOLACTONE25 MG ORAL; +TAMSULOSIN HCL0.4 MG ORAL
[2019-10-19] MEDS ORDERED: SIMVASTATIN40 MG ORAL (22:10)
[2019-10-19] MEDS ORDERED: Albuterol ud Inhalation HHN ONE (22:30)
[2019-10-19] MEDS ORDERED: Ipratropium 0.02% Inh Soln 2.5ml UD HHN ONE (22:30)
--- NOTE | 2019-10-19 22:30 | NUR ---
ED Nurse Note: Recieved pt BIBA from SNF with c/o cough x 1 month, pt is awake, and alert, noted with mild wheezes heard and mild sob noted on exertion, no cough noted, pt denies chest pain or any pain, is ambulatory, o2 sat=95% on ra, pt gowned and assisted to monitoring, will resume care as ordered and closely monitor.
[2019-10-19 23:14] LABS: APPEARANCE,URINE CLEAR; BILIRUBIN, URINE NEGATIVE (NEGATIVE); COLOR,URINE PALE YELLOW; GLUCOSE, URINE (UA) NEGATIVE (NEGATIVE); KETONES,URINE NEGATIVE (NEGATIVE); LEUKOCYTE ESTERASE ,URINE NEGATIVE (NEGATIVE); NITRITE,URINE NEGATIVE (NEGATIVE); PH,URINE 6 (4.5-8.0); PROTEIN,URINE 1+ (NEGATIVE); UROBILINOGEN,URINE NORMAL MG/DL (0.0-1.0)
[2019-10-19 23:30] VITALS: BP 122/79
[2019-10-19 23:31] LABS: ANION GAP 11 mmol/L (5-15); BLOOD UREA NITROGEN 39 mg/dL (7-18); CALCIUM 8.9 MG/DL (8.5-10.1); CARBON DIOXIDE 26 MMOL/L (21-32); CHLORIDE 100 MMOL/L (98-107); CREATININE 1.6 MG/DL (0.55-1.30); POTASSIUM 4.1 MMOL/L (3.5-5.1); SODIUM 136 MMOL/L (136-145)
[2019-10-19 23:42] LABS: BASOPHILS % (AUTO) 0.7 % (0.0-2.0); EOSINOPHILS % (AUTO) 5.4 % (0.0-3.0); HEMATOCRIT 39.2 % (42.0-52.0); LYMPHOCYTES % (AUTO) 15.9 % (20.0-45.0); MEAN CORPUSCULAR VOLUME 93 FL (80-99); MONOCYTES % (AUTO) 13.9 % (1.0-10.0); NEUTROPHILS % (AUTO) 64.2 % (45.0-75.0); PLATELET COUNT 177 K/UL (150-450); RED CELL DISTRIBUTION WIDTH 11.8 % (11.6-14.8)
[2019-10-19 23:44] LABS: ALANINE AMINOTRANSFERASE 72 U/L (12-78); ALBUMIN/GLOBULIN RATIO 0.6 (1.0-2.7); ALKALINE PHOSPHATASE 168 U/L (46-116); ASPARTATE AMINO TRANSFERASE 84 U/L (15-37); BILIRUBIN,TOTAL 0.8 MG/DL (0.2-1.0)
--- NOTE | 2019-10-20 00:10 | NUR ---
ED Nurse Note: Pt continues to rest in bed, awake alert and oriented, ambulating to bathroom, lasic given effective, pt denies pain, on tele monitoring, removed at times, has to be re-oriented to keep on, pt is calm and cooperative, IV site patent, will continue to monitor while waiting for admisison to hospital.
--- NOTE | 2019-10-20 01:00 | NUR ---
ED Nurse Note: Pt to be admitted to hospital, pt refused to have swabs done, pt became very agitated and combative when attempted, MD informed and aware, also charge nurse.
[2019-10-20 01:30] VITALS: BP 119/74
--- NOTE | 2019-10-20 01:48 | Emergency Room Report ---
History of Present Illness General Chief Complaint: Upper Respiratory Illness Source: Patient, Medical Record, EMS Present Illness HPI 79-year-old male from [facility]. Has a cardiac history with previous AICD and bypass surgery. He also is mildly mentally delayed. He presents with complaint of a cough. Onset today. No nausea no vomiting. No fever chills. Nothing made it better. Nothing made it worse. History is limited because of his condition. Allergies: Coded Allergies: No Known Allergies (Verified , 02/03/08) Patient History Past Medical History: see triage record, old chart reviewed, HTN, CAD Past Surgical History: CABG, other - AICD Pertinent Family History: none Social History: Denies: smoking Immunizations: other Reviewed Nursing Documentation: PMH: Agreed; PSxH: Agreed Nursing Documentation-PMH Past Medical History: No History, Except For Hx Cardiac Problems: Yes - CHF Hx Pacemaker: Yes - Defibrillator Hx COPD: Yes Hx Diabetes: Yes Hx Cancer: No Hx Gastrointestinal Problems: No Hx Neurological Problems: Yes - Developmental Delay Review of Systems Eye: Denies: eye pain, blurred vision ENT: Denies: ear pain, nose congestion, throat swelling Respiratory: Reports: cough, shortness of breath Cardiovascular: Denies: chest pain, palpitations Gastrointestinal: Denies: abdominal pain, diarrhea, nausea, vomiting Musculoskeletal: Denies: back pain, joint pain Skin: Denies: rash Neurological: Denies: headache, numbness Endocrine: Denies: increased thirst, increased urine Hematologic/Lymphatic: Denies: easy bruising All Other Systems: negative except mentioned in HPI Physical Exam Vital Signs Date Time Temp Pulse Resp B/P (MAP) Pulse Ox O2 Delivery O2 Flow Rate FiO2 10/19/19 22:01 98.1 78 14 128/84 (99) 98 Room Air 10/19/19 22:25 21 Vitals normal Sp02 EP Interpretation: reviewed, normal General Appearance: well appearing, no apparent distress, alert Head: normocephalic, atraumatic Eyes: bilateral eye PERRL, bilateral eye EOMI ENT: hearing grossly normal, normal pharynx Neck: full range of motion, supple, no meningismus Respiratory: chest non-tender, rales, wheezing Cardiovascular #1: regular rate, rhythm, no murmur Gastrointestinal: normal bowel sounds, non tender, no mass, no organomegaly, no bruit, non-distended Musculoskeletal: back normal, normal range of motion, gait/station normal Psychiatric: mood/affect normal Medical Decision Making Diagnostic Impression: Primary Impression: Acute exacerbation of CHF (congestive heart failure) Qualified Codes: I50.9 - Heart failure, unspecified ER Course This patient presents with a cough. Noted to have wheezing and rales on exam. Chest x-ray and laboratory data indicate CHF. No evidence of PE, dissection, pneumonia to name a few. Because of his age, developmental mental delay, and medical history, benefit from observation for diuresis and ACS rule out. I discussed the case with the covering doctor for his IPA. Dr. Musa who patient for telemetry observation here under the service of Dr. Ashby. The case with him and he accepted the patient for telemetry observation. EKG Diagnostic Results Rate: normal Rhythm: NSR ST Segments: no acute changes Rhythm Strip Diag. Results EP Interpretation: yes Rate: 60 Rhythm: NSR, no PVC's, no ectopy Chest X-Ray Diagnostic Results Chest X-Ray Diagnostic Results : Chest X-Ray Ordered: Yes # of Views/Limited/Complete: 1 View Indication: Shortness of Breath EP Interpretation: Yes Interpretation: no consolidation, no pneumothorax, other - vasc congestion Impression: Other - chf Electronically Signed by: Demario Lyon MD Last Vital Signs Date Time Temp Pulse Resp B/P (MAP) Pulse Ox O2 Delivery O2 Flow Rate FiO2 10/19/19 23:30 98.1 71 19 122/79 96 Room Air 21 Status: improved Disposition: PLACE IN OBSERVATION Condition: Serious Referrals: NON PHYSICIAN (PCP) Demario Lyon MD Oct 20, 2019 01:48
--- NOTE | 2019-10-20 01:50 | NUR ---
ED Nurse Note: Pt has room for admission, report called to floor nurse VashtiRN, report given, pt being taken to unit via gurney and acls protocols with monitoring, IV site intact and patent, belongings list completed, nad noted during pt transport to floor.
--- NOTE | 2019-10-20 02:22 | NUR ---
Report from Kenisha MEJÍA from ED. Patient arrived to the unit shortly after. Skin is intact, belongings verified. Telemetry monitoring initiated. Patient ambulated to restroom, stable upon ambulation. Alert x 2.
[2019-10-20 04:00] VITALS: BP 121/83
[2019-10-20] MEDS ORDERED: guaiFENesin 100mg/5ml Liq ud ORAL PRN (07:00)
[2019-10-20] MEDS: Albuterol/Ipratropium 3ml neb HHN SCH ×3 (07:15→22:27)
--- NOTE | 2019-10-20 07:20 | NUR ---
NURSE NOTES: Received report and patient from Kojo MEJÍA in bed AAO x 3, name and place. Denies any pain at this time, No s/s of acute distress noted. IV is on LFA 18G, intact and patent. Bed is on lowest position with bedside rails up X2, call light is within easy reach. All needs attended to and met. Will continue with the plan of care.
--- NOTE | 2019-10-20 07:46 | NUR ---
report given to cb MJEÍA this AM. I received orders from dr donohue and i have entered the orders. see orders for details.
[2019-10-20] MEDS: Glimepiride 1mg tab ORAL SCH (07:57)
[2019-10-20 08:00] VITALS: BP 139/81
[2019-10-20] MEDS: Tamsulosin 0.4mg cap ORAL SCH (08:55)
[2019-10-20] MEDS: Spironolactone 25mg tab ORAL SCH (08:55)
[2019-10-20] MEDS: Vitamin D 1000 IU Tab ORAL SCH (08:57)
[2019-10-20] MEDS ORDERED: Aspirin EC 81mg tab ORAL SCH (09:00)
--- NOTE | 2019-10-20 09:12 | Diagnostic Imaging Report ---
Indication: Shortness of breath Technique: One view of the chest Comparison: 12/23/2016 Findings: The lungs and pleural spaces are clear. The heart size is upper limits of normal. There is a left chest AICD. No significant interim change Impression: No acute process
[2019-10-20] MEDS: NovoLOG Insulin Flexpen SUBQ SCH ×3 (11:30→21:00)
[2019-10-20 11:52] VITALS: BP 124/75
--- NOTE | 2019-10-20 13:17 | NUR ---
*-* INSURANCE *-* ALL AVAILABLE CLINICALS HAVE BEEN FAXED TO: MARC[facility] P: [phone] F: [phone]
--- NOTE | 2019-10-20 14:30 | History and Physical Report ---
DATE OF ADMISSION: 10/20/2019 HISTORY OF PRESENT ILLNESS: This is a 79-year-old male who is a board and care resident. He was admitted to the hospital with exacerbation of CHF. He has a previous complicated cardiac history of cardiac bypass surgery and AICD. He also has cognitive impairment with developmental delay. The patient reported cough with shortness of breath. He was brought to the hospital. No workup initiated. At this time, he states he is feeling better. PAST HISTORY: CABG, diabetes mellitus, hypertension. REVIEW OF SYSTEMS: Denies any headaches, hematemesis, melena, hematochezia, night sweats, or weight lost. PREVIOUS SURGERIES: CABG and AICD. ALLERGIES: None reported. CODE STATUS: Full. HOME MEDICATIONS: Include aspirin, Lipitor, folic acid, Lasix, Amaryl, metoprolol, Singulair, Januvia, Aldactone, Flomax, vitamin D, and breathing treatments. PHYSICAL EXAMINATION: GENERAL: Reveals a 79-year-old male. HEENT: Unremarkable. CHEST: Decreased breath sounds bilaterally. Few fine basal crackles. HEART: Sounds are normal. AICD is noted. ABDOMEN: Soft. EXTREMITIES: There is trace pedal edema. VITAL SIGNS: Blood pressure 120/80, heart rate is 74, respirations 18, O2 saturation 98% on room air. LABORATORY TESTING: Shows normal CBC and BMP. Creatinine 1.6. Alkaline phosphatase 168. Troponin 0.019. ProBNP 1923. X-ray chest per report appears to be suggestive of pulmonary edema. I have reviewed an old 2D echo, which shows that the left ventricular chamber size is normal; however in 2017, there was global left ventricular severe hypokinesis with EF of 15%. IMPRESSION: 1. Decompensated congestive heart failure. 2. Pulmonary edema. 3. Diabetes mellitus. 4. Hypertension. DISCUSSION: Admit to the hospital. We will follow carefully as import and export clerk and teenage program director. We will consult Cardiology. We will increase diuretics. Geovanny Ashby M.D. DR: JARED JOB#: [id number] CC:
[2019-10-20 16:00] VITALS: BP 139/78
[2019-10-20] MEDS: Montelukast 10mg tablet ORAL SCH (16:34)
--- NOTE | 2019-10-20 19:07 | NUR ---
CASE MANAGEMENT: REVIEW 79 YEAR OLD MALE BIBA FROM [facility] CC: COUGH . HX CABG SI: CHF EXACERBATION T 98.1 HR 78 RR 14 BP 128/84 SAT 98% ROOM AIR BUN 39 CR 1.6 BNP 1923 TROP 0.019 IS: LASIX 40MG IV X1 PROVENTIL 2.5MG HHN X1 ATROVENT 0.5MG HHN X1 PATIENT ADMITTED TO TELEMETRY UNIT 10/20/2019 DCP: PATIENT IS FROM [facility]
--- NOTE | 2019-10-20 19:25 | NUR ---
Received report from nurse Giuliano MEJÍA. Patient sitting up on chair and appears in no distress. Denies c/o pain nor sob at this time. Patient is mentally delayed but would respond appropriately to simple questions asked. Call light within easy reach as nurse reminded pt. to call for assistance. Continue to monitor pt.
--- NOTE | 2019-10-20 19:41 | NUR ---
HAND-OFF: Report given to Seun. Endorsed the plan of care.
[2019-10-20 20:00] VITALS: BP 131/71
[2019-10-20] MEDS: Atorvastatin 80mg tab ORAL SCH (21:04)
--- NOTE | 2019-10-20 21:24 | Cardiology Progress Note ---
Assessment/Plan Assessment/Plan acei , coreg , diretic echo will follow [id number] Objective Last 24 Hour Vital Signs Date Time Temp Pulse Resp B/P (MAP) Pulse Ox O2 Delivery O2 Flow Rate FiO2 10/20/19 21:05 70 140/71 10/20/19 16:04 85 16 100 Room Air 21 10/20/19 16:00 97.3 64 20 139/78 (98) 100 10/20/19 16:00 64 10/20/19 15:34 79 18 100 Room Air 21 75 16 99 10/20/19 12:00 69 10/20/19 11:52 97.8 73 20 124/75 (91) 97 10/20/19 09:00 Room Air 10/20/19 08:54 71 139/81 10/20/19 08:00 66 10/20/19 08:00 97.3 66 20 139/81 (100) 99 10/20/19 04:17 Room Air 10/20/19 04:00 98.4 74 19 121/83 (96) 98 10/20/19 03:13 69 10/20/19 01:50 98.4 73 19 119/74 98 Room Air 21 10/20/19 01:30 98.4 73 19 119/74 98 Room Air 21 10/19/19 23:30 98.1 71 19 122/79 96 Room Air 21 10/19/19 22:25 62 17 98 Room Air 21 74 18 94 10/19/19 22:20 78 14 Room Air 10/19/19 22:01 98.1 78 14 128/84 (99) 98 Room Air Laboratory Tests Test 10/19/19 22:45 10/19/19 23:00 10/20/19 08:05 10/20/19 16:00 Urine Color Pale yellow Urine Appearance Clear Urine pH 6 (4.5-8.0) Urine Specific [place] 1.010 (1.005-1.035) Urine Protein 1+ (NEGATIVE) H Urine Glucose (UA) Negative (NEGATIVE) Urine Ketones Negative (NEGATIVE) Urine Blood Negative (NEGATIVE) Urine Nitrite Negative (NEGATIVE) Urine Bilirubin Negative (NEGATIVE) Urine Urobilinogen Normal MG/DL (0.0-1.0) Urine Leukocyte Esterase Negative (NEGATIVE) Urine RBC 0 /HPF (0 - 0) Urine WBC 0-2 /HPF (0 - 0) Urine Squamous Epithelial Cells Occasional /LPF Urine Bacteria Few /HPF (NONE) Urine Mucus Moderate /LPF (NONE/OCC) H White Blood Count 9.0 K/UL (4.8-10.8) Red Blood Count 4.20 M/UL (4.70-6.10) L Hemoglobin 14.0 G/DL (14.2-18.0) L Hematocrit 39.2 % (42.0-52.0) L Mean Corpuscular Volume 93 FL (80-99) Mean Corpuscular Hemoglobin 33.4 PG (27.0-31.0) H Mean Corpuscular Hemoglobin Concent 35.7 G/DL (32.0-36.0) Red Cell Distribution Width 11.8 % (11.6-14.8) Platelet Count 177 K/UL (150-450) Mean Platelet Volume 6.1 FL (6.5-10.1) L Neutrophils (%) (Auto) 64.2 % (45.0-75.0) Lymphocytes (%) (Auto) 15.9 % (20.0-45.0) L Monocytes (%) (Auto) 13.9 % (1.0-10.0) H Eosinophils (%) (Auto) 5.4 % (0.0-3.0) H Basophils (%) (Auto) 0.7 % (0.0-2.0) Sodium Level 136 MMOL/L (136-145) Potassium Level 4.1 MMOL/L (3.5-5.1) Chloride Level 100 MMOL/L (98-107) Carbon Dioxide Level 26 MMOL/L (21-32) Anion Gap 11 mmol/L (5-15) Blood Urea Nitrogen 39 mg/dL (7-18) H Creatinine 1.6 MG/DL (0.55-1.30) H Estimat Glomerular Filtration Rate 42.0 mL/min (>60) Glucose Level 97 MG/DL (74-106) Calcium Level 8.9 MG/DL (8.5-10.1) Total Bilirubin 0.8 MG/DL (0.2-1.0) Aspartate Amino Transf (AST/SGOT) 84 U/L (15-37) H Alanine Aminotransferase (ALT/SGPT) 72 U/L (12-78) Alkaline Phosphatase 168 U/L (46-116) H Troponin I 0.019 ng/mL (0.000-0.056) 0.011 ng/mL (0.000-0.056) 0.012 ng/mL (0.000-0.056) Pro-B-Type Natriuretic Peptide 1923 pg/mL (0-125) H Total Protein 7.9 G/DL (6.4-8.2) Albumin 3.0 G/DL (3.4-5.0) L Globulin 4.9 g/dL Albumin/Globulin Ratio 0.6 (1.0-2.7) L Andrade Rebollar MD Oct 20, 2019 21:24
[2019-10-21] VITALS: BP 126/73
[2019-10-21 04:00] VITALS: BP 138/72
[2019-10-21 05:37] LABS: BASOPHILS % (AUTO) 0.6 % (0.0-2.0); EOSINOPHILS % (AUTO) 4.4 % (0.0-3.0); HEMATOCRIT 40.4 % (42.0-52.0); HEMOGLOBIN 14.2 G/DL (14.2-18.0); LYMPHOCYTES % (AUTO) 11.1 % (20.0-45.0); MEAN CORPUSCULAR VOLUME 93 FL (80-99); PLATELET COUNT 197 K/UL (150-450); RED BLOOD COUNT 4.35 M/UL (4.70-6.10); RED CELL DISTRIBUTION WIDTH 11.8 % (11.6-14.8); WHITE BLOOD COUNT 9.3 K/UL (4.8-10.8)
[2019-10-21 06:13] LABS: ANION GAP 11 mmol/L (5-15); BLOOD UREA NITROGEN 35 mg/dL (7-18); CALCIUM 9.2 MG/DL (8.5-10.1); CARBON DIOXIDE 26 MMOL/L (21-32); CHLORIDE 101 MMOL/L (98-107); CREATININE 1.6 MG/DL (0.55-1.30); POTASSIUM 4.2 MMOL/L (3.5-5.1); SODIUM 138 MMOL/L (136-145)
--- NOTE | 2019-10-21 06:15 | Consultation ---
DATE OF CONSULTATION: 10/20/2019 CARDIOLOGY CONSULTATION CONSULTING PHYSICIAN: Andrade Rebollar M.D. REFERRING PHYSICIAN: Geovanny Ashby M.D. REASON FOR REFERRAL: Congestive heart failure. HISTORY OF PRESENT ILLNESS: This is an elderly gentleman with a history of multiple medical problems including developmental delay who has been admitted to the hospital. This consultation is requested by Dr. Ashby to help in the management of congestive heart failure. The patient denies any chest pain, shortness of breath, PND, orthopnea, or palpitations. He uses one pillow. Denies any dizziness or lightheadedness on standing. He tells me that he is able to walk around and does not have any chest pain, pressure, shortness of breath on activity, at least according to what he is able to provide for me. Review of the chart indicates that he is a resident of [facility] and family was complaining of some coughing that started today without any fevers or chills. No relieving or exacerbating factors identified by the patient or the facility. There is no other information available for review. PAST MEDICAL HISTORY: Positive for history of respiratory failure, COPD exacerbation, kidney disease, pacemaker implantation, history of acute renal failure with acute tubular necrosis, chronic renal insufficiency, mild rhabdomyolysis, pulmonary edema, diabetes mellitus, and developmental delay, and on prior occasions when I had seen the patient, he had intracardiac defibrillator with right ventricular lead malfunction with high threshold of the RV leads at that time. There is a history of coronary artery bypass grafting, details of which are unknown. Prior ejection fraction was 28%. He was subsequently to follow up with the recycling worker for his health plan. I am certainly not sure if that ever occurred. ALLERGIES: None. SOCIAL HISTORY: No history of tobacco, alcohol, or drug use. REVIEW OF SYSTEMS: GASTROINTESTINAL: He denies. GENITOURINARY: He denies. PULMONARY: He denies. CONSTITUTIONAL: He denies. However, in light of the fact that he has some developmental delay, the information provided by the patient is questionable for accuracy. PHYSICAL EXAMINATION: GENERAL: Shows to be an elderly gentleman, in no respiratory distress. NECK: Supple. No jugular venous distention. LUNGS: There are basilar crackles noted. No wheezes or rhonchi. CARDIAC: Regular rate and rhythm. ABDOMEN: Soft, nontender. Positive bowel sounds. EXTREMITIES: There is no edema. NEUROLOGICAL: He is awake, alert, and responsive. Somewhat hard of hearing. LABORATORY AND DIAGNOSTIC DATA: White count of 9, hemoglobin 14, and platelet count 177. Sodium 136, potassium 4.1, chloride 100, bicarb of 26, BUN 39, creatinine 1.6, glucose of 97, and calcium is 8.3. Troponin of 0.019, 0.11, and 0.012. ProBNP of 1900. Total protein 7.9 with albumin of 3.9, and urinalysis shows 0 to 2 WBC's. Imaging performed and a chest x-ray that was performed at the time of his admission showed no acute processes. Lungs and pleural spaces appear to be normal and no electrocardiograms available at this time. Previously as mentioned, ejection fraction of 15% with a technically difficult study and at least moderate degree of mitral regurgitation, mild diastolic relaxation abnormality, pulmonary artery systolic pressure was 31 at that time. ASSESSMENT: 1. Possible congestive heart failure exacerbation. 2. History of cardiomyopathy. 3. History of coronary artery disease, status post coronary artery bypass grafting. 4. Developmental delay. 5. Questionable history of COPD. 6. History of intracardiac defibrillator with RV lead malfunction previously in 2017. PLAN: Dr. Ashby, this patient was seen in cardiac consultation with some evidence of congestive heart failure. I do agree with the continuation of diuretics as blood pressure allows. He should be on cardiomyopathy medications including the use of FELIX inhibitors and/or hydralazine combination. He is on Aldactone at home. His medications from home or from the convalescent facility were reviewed and include benazepril 5 mg daily as well as Coreg 3.125 mg, which I will resume at this present time. His simvastatin will be continued as well as spironolactone and consideration to administration of Entresto in the future may be necessary. An echocardiogram will be ordered, and his EKG, which is fairly unremarkable, will be repeated in the morning. Andrade Rebollar M.D. DR: JOSE ALEJANDRO JOB#: [id number] CC:
[2019-10-21] MEDS: NovoLOG Insulin Flexpen SUBQ SCH ×4 (06:25→21:00)
[2019-10-21] MEDS: Glimepiride 1mg tab ORAL SCH (06:25)
[2019-10-21] MEDS: Albuterol/Ipratropium 3ml neb HHN SCH ×2 (07:46→15:31)
--- NOTE | 2019-10-21 07:50 | NUR ---
NURSE NOTES: pt sitting on chair eating breakfast, pt has a hard time communicating in Georgian, pt ambulates with steady gait, pt denies pain, IV intact and asymptomatic, call light next to patient and was instructed how to use it, this took a while, no s/s of distress or sob noted.
[2019-10-21 08:00] VITALS: BP 116/86
[2019-10-21] MEDS: Vitamin D 1000 IU Tab ORAL SCH (09:57)
[2019-10-21] MEDS: Aspirin EC 81mg tab ORAL SCH (09:57)
[2019-10-21] MEDS: Tamsulosin 0.4mg cap ORAL SCH (09:58)
[2019-10-21] MEDS: Spironolactone 25mg tab ORAL SCH (09:58)
[2019-10-21] MEDS: Benazepril 10mg tab ORAL SCH ×2 (09:59→18:13)
--- NOTE | 2019-10-21 11:38 | NUR ---
CASE MANAGEMENT: REVIEW 10/21/19 SI: DECOMPENSATED CONGESTED HEART FAILURE. PULMONARY EDEMA . DM . CHF EXACERBATION 97.3 82 17 116/86 99% ROOM AIR BUN 35 CR 1.6 BG 65 IS: IV LASIX BID LOPRESSOR PO BID ASPIRIN PO QD LIPITOR PO QHS ALDACTONE PO QD LOTENSIN PO BID FLOMAX PO QD GLIMEPIRIDE PO AC ALBUTEROL HHN Q8HR \: 2E TELEMETRY UNIT DCP: PATIENT IS FROM [facility] PLAN: URMILA HILLIARD
[2019-10-21 12:05] VITALS: BP 122/73
[2019-10-21 16:00] VITALS: BP 126/72
[2019-10-21] MEDS: Montelukast 10mg tablet ORAL SCH (16:51)
--- NOTE | 2019-10-21 17:09 | Pulmonology Progress Note ---
Assessment/Plan Assessment/Plan IMPRESSION: 1. Decompensated congestive heart failure. 2. Pulmonary edema. 3. Diabetes mellitus. 4. Hypertension. DISCUSSION: I will follow carefully as production control technologist and catering chef. Seen by Cardiology. Continue diuresis Geovanny Ashby M.D. Subjective Interval Events: Feeling better Constitutional: Reports: no symptoms HEENT: Repors: no symptoms Respiratory: Reports: no symptoms Cardiovascular: Reports: no symptoms Allergies: Coded Allergies: No Known Allergies (Verified , 02/03/08) Objective Last 24 Hour Vital Signs Date Time Temp Pulse Resp B/P (MAP) Pulse Ox O2 Delivery O2 Flow Rate FiO2 10/21/19 16:00 98.4 69 16 126/72 (90) 97 10/21/19 15:41 71 18 100 Room Air 21 68 18 99 10/21/19 12:05 97.5 75 17 122/73 (89) 98 10/21/19 11:47 66 10/21/19 09:59 116/86 10/21/19 09:58 82 116/86 10/21/19 09:57 82 116/86 10/21/19 08:16 Room Air 10/21/19 08:00 97.3 82 17 116/86 (96) 99 10/21/19 07:56 86 18 100 Room Air 21 83 18 100 10/21/19 07:30 85 10/21/19 04:00 64 10/21/19 04:00 97.7 68 21 138/72 (94) 97 10/21/19 00:00 58 10/21/19 00:00 97.7 65 20 126/73 (90) 97 10/20/19 21:05 70 140/71 10/20/19 21:00 Room Air 10/20/19 20:00 74 10/20/19 20:00 97.5 70 20 131/71 (91) 97 Intake and Output 10/20/19 10/21/19 19:00 07:00 Intake Total 1100 ml Balance 1100 ml Intake Oral 1100 ml # Voids 4 6 General Appearance: no acute distress HEENT: normocephalic Respiratory/Chest: chest wall non-tender Cardiovascular: normal peripheral pulses Abdomen: normal bowel sounds Laboratory Tests 10/21/19 00:15: Troponin I 0.014 10/21/19 04:30: White Blood Count 9.3, Red Blood Count 4.35L, Hemoglobin 14.2, Hematocrit 40.4L , Mean Corpuscular Volume 93, Mean Corpuscular Hemoglobin 32.7H, Mean Corpuscular Hemoglobin Concent 35.1, Red Cell Distribution Width 11.8, Platelet Count 197, Mean Platelet Volume 5.7L, Neutrophils (%) (Auto) 72.0, Lymphocytes ( %) (Auto) 11.1L, Monocytes (%) (Auto) 12.0H, Eosinophils (%) (Auto) 4.4H, Basophils (%) (Auto) 0.6, Sodium Level 138, Potassium Level 4.2, Chloride Level 101, Carbon Dioxide Level 26, Anion Gap 11, Blood Urea Nitrogen 35H, Creatinine 1.6H, Estimat Glomerular Filtration Rate 42.0, Glucose Level 65L, Calcium Level 9.2, Magnesium Level 2.2 Current Medications Medications (Trade) Dose Ordered Sig/Hemant Route PRN Reason Start Time Stop Time Status Last Admin Dose Admin Albuterol/ Ipratropium (Albuterol/ Ipratropium) 3 ml Q8HRT HHN 10/20/19 07:15 10/25/19 07:14 10/21/19 15:31 Aspirin (Ecotrin) 81 mg DAILY ORAL 10/21/19 09:00 11/20/19 08:59 10/21/19 09:57 Atorvastatin Calcium (Lipitor) 80 mg BEDTIME ORAL 10/20/19 21:00 11/19/19 20:59 10/20/19 21:04 Benazepril HCl (Lotensin) 2.5 mg BID ORAL 10/21/19 09:00 11/20/19 08:59 10/21/19 09:59 Carvedilol (Coreg) 3.125 mg EVERY 12 HOURS ORAL 10/21/19 09:00 11/20/19 08:59 10/21/19 09:57 Dextrose (Dextrose 50%) 25 ml Q30M PRN IV Hypoglycemia 10/20/19 07:00 11/19/19 06:59 Dextrose (Dextrose 50%) 50 ml Q30M PRN IV Hypoglycemia 10/20/19 07:00 11/19/19 06:59 Folic Acid (Folate) 1 mg DAILY ORAL 10/20/19 09:00 11/19/19 08:59 10/21/19 09:58 Furosemide (Lasix) 40 mg Q12H IV 10/20/19 12:00 11/19/19 11:59 10/21/19 11:59 Glimepiride (AmaryL) 1 mg ACBREAKFAST ORAL 10/20/19 07:15 11/19/19 07:14 10/21/19 06:25 Guaifenesin (Robitussin) 100 mg Q4H PRN ORAL For Cough 10/20/19 07:00 11/19/19 06:59 Insulin Aspart (NovoLOG) BEFORE MEALS AND HS SUBQ 10/20/19 11:30 11/19/19 11:29 Metoprolol Tartrate (Lopressor) 25 mg Q12HR ORAL 10/20/19 09:00 11/19/19 08:59 10/21/19 09:58 Montelukast Sodium (Singulair) 10 mg QPM ORAL 10/20/19 16:30 11/19/19 16:29 10/21/19 16:51 Sitagliptin Phosphate (Januvia) 100 mg ACBREAKFAST ORAL 10/20/19 07:15 11/19/19 07:14 10/21/19 06:25 Spironolactone (Aldactone) 12.5 mg DAILY ORAL 10/20/19 09:00 11/19/19 08:59 10/21/19 09:58 Tamsulosin HCl (Flomax) 0.4 mg DAILY ORAL 10/20/19 09:00 11/19/19 08:59 10/21/19 09:58 Vitamin D (Vitamin D) 2,000 intlu DAILY ORAL 10/20/19 09:00 11/19/19 08:59 10/21/19 09:57 Geovanny Ashby MD Oct 21, 2019 17:09
--- NOTE | 2019-10-21 18:57 | NUR ---
HAND-OFF: Report given to Carley RAVI.
[2019-10-21 20:00] VITALS: BP 108/68
[2019-10-21] MEDS: Atorvastatin 80mg tab ORAL SCH (21:41)
--- NOTE | 2019-10-21 22:39 | Cardiology Progress Note ---
Assessment/Plan Assessment/Plan 1. congestive heart failure exacerbation. 2. History of cardiomyopathy. 3. History of coronary artery disease, status post coronary artery bypass grafting. 4. Developmental delay. 5. Questionable history of COPD. 6. History of intracardiac defibrillator with RV lead malfunction previously in 2017. seems better but still with chf finding keep on iv diuretics cr stable will repat labs await repat echo he feesl fine on acei and bb iv lasix switch to po int ehe next 24 - 48 hours tele ranjeet Subjective Cardiovascular: Denies: chest pain, lightheadedness, palpitations Respiratory: Denies: shortness of breath Gastrointestinal/Abdominal: Denies: abdominal pain Genitourinary: Denies: burning Objective Last 24 Hour Vital Signs Date Time Temp Pulse Resp B/P (MAP) Pulse Ox O2 Delivery O2 Flow Rate FiO2 10/21/19 21:42 73 122/68 10/21/19 21:41 73 122/68 10/21/19 18:13 126/72 10/21/19 16:41 69 10/21/19 16:00 98.4 69 16 126/72 (90) 97 10/21/19 15:41 71 18 100 Room Air 21 68 18 99 10/21/19 12:05 97.5 75 17 122/73 (89) 98 10/21/19 11:47 66 10/21/19 09:59 116/86 10/21/19 09:58 82 116/86 10/21/19 09:57 82 116/86 10/21/19 08:16 Room Air 10/21/19 08:00 97.3 82 17 116/86 (96) 99 10/21/19 07:56 86 18 100 Room Air 21 83 18 100 10/21/19 07:30 85 10/21/19 04:00 64 10/21/19 04:00 97.7 68 21 138/72 (94) 97 10/21/19 00:00 58 10/21/19 00:00 97.7 65 20 126/73 (90) 97 General Appearance: no apparent distress, alert Neck: supple Cardiovascular: normal rate Respiratory/Chest: crackles/rales Abdomen: non tender, soft Extremities: normal range of motion, non-tender, trace edema Intake and Output 10/20/19 10/21/19 19:00 07:00 Intake Total 1100 ml Balance 1100 ml Intake Oral 1100 ml # Voids 4 6 Laboratory Tests Test 10/21/19 00:15 10/21/19 04:30 Troponin I 0.014 ng/mL (0.000-0.056) White Blood Count 9.3 K/UL (4.8-10.8) Red Blood Count 4.35 M/UL (4.70-6.10) L Hemoglobin 14.2 G/DL (14.2-18.0) Hematocrit 40.4 % (42.0-52.0) L Mean Corpuscular Volume 93 FL (80-99) Mean Corpuscular Hemoglobin 32.7 PG (27.0-31.0) H Mean Corpuscular Hemoglobin Concent 35.1 G/DL (32.0-36.0) Red Cell Distribution Width 11.8 % (11.6-14.8) Platelet Count 197 K/UL (150-450) Mean Platelet Volume 5.7 FL (6.5-10.1) L Neutrophils (%) (Auto) 72.0 % (45.0-75.0) Lymphocytes (%) (Auto) 11.1 % (20.0-45.0) L Monocytes (%) (Auto) 12.0 % (1.0-10.0) H Eosinophils (%) (Auto) 4.4 % (0.0-3.0) H Basophils (%) (Auto) 0.6 % (0.0-2.0) Sodium Level 138 MMOL/L (136-145) Potassium Level 4.2 MMOL/L (3.5-5.1) Chloride Level 101 MMOL/L (98-107) Carbon Dioxide Level 26 MMOL/L (21-32) Anion Gap 11 mmol/L (5-15) Blood Urea Nitrogen 35 mg/dL (7-18) H Creatinine 1.6 MG/DL (0.55-1.30) H Estimat Glomerular Filtration Rate 42.0 mL/min (>60) Glucose Level 65 MG/DL (74-106) L Calcium Level 9.2 MG/DL (8.5-10.1) Magnesium Level 2.2 MG/DL (1.8-2.4) Andrade Rebollar MD Oct 21, 2019 22:39
[2019-10-22] VITALS: BP 118/64
[2019-10-22] MEDS: Albuterol/Ipratropium 3ml neb HHN SCH ×4 (00:05→23:46)
--- NOTE | 2019-10-22 06:00 | NUR ---
NURSE NOTES: RESTED WELL, NO SIGNIFICANT CHANGE OF CONDITION NOTED THROUGHOUT THE NIGHT. SAFETY MAINTAINED. NAD.
[2019-10-22] MEDS: NovoLOG Insulin Flexpen SUBQ SCH ×4 (06:30→21:06)
--- NOTE | 2019-10-22 07:30 | NUR ---
NURSE NOTES: Received report form Patricia. patient is A/A/O x 3. able to follow commands. ambulates. Denies any pain/discomfort at this time, No s/s of acute distress noted. IV is on LFA 20g. intact and patent. Bed is on lowest position with bedside rails up X2, call light is within easy reach. All needs attended to and met. Will continue with the plan of care.
--- NOTE | 2019-10-22 07:30 | NUR ---
HAND-OFF: Report given to BREONNA PEÑA.
[2019-10-22] MEDS: Glimepiride 1mg tab ORAL SCH (07:36)
[2019-10-22 08:00] VITALS: BP 111/57
[2019-10-22] MEDS: Spironolactone 25mg tab ORAL SCH (08:27)
[2019-10-22] MEDS: Aspirin EC 81mg tab ORAL SCH (08:27)
[2019-10-22] MEDS: Vitamin D 1000 IU Tab ORAL SCH (08:27)
[2019-10-22] MEDS: Tamsulosin 0.4mg cap ORAL SCH (08:27)
[2019-10-22] MEDS: Benazepril 10mg tab ORAL SCH ×2 (08:28→17:10)
--- NOTE | 2019-10-22 08:33 | NUR ---
NURSE NOTES: patient on HHN while sitting on a chair. no distress noted. will cont to monitor.
[2019-10-22 12:00] VITALS: BP 130/70
--- NOTE | 2019-10-22 13:15 | NUR ---
*-* INSURANCE *-* ALL AVAILABLE CLINICALS HAVE BEEN FAXED TO: DANNY:JASSI REF# [id number] P: [phone] F: [phone]
--- NOTE | 2019-10-22 13:32 | Cardiology Progress Note ---
Assessment/Plan Assessment/Plan 1. congestive heart failure exacerbation. 2. History of cardiomyopathy. 3. History of coronary artery disease, status post coronary artery bypass grafting. 4. Developmental delay. 5. Questionable history of COPD. 6. History of intracardiac defibrillator with RV lead malfunction previously in 2017. still with chf finding keep on iv diuretics cr stable will repat labs await repat echo he feesl fine on acei and bb iv lasix switch to po sat tele noted Subjective Cardiovascular: Denies: chest pain, lightheadedness, palpitations Respiratory: Denies: shortness of breath Gastrointestinal/Abdominal: Denies: abdominal pain Genitourinary: Reports: burning Objective Last 24 Hour Vital Signs Date Time Temp Pulse Resp B/P (MAP) Pulse Ox O2 Delivery O2 Flow Rate FiO2 10/22/19 12:00 97.3 70 20 130/70 (90) 98 10/22/19 08:28 111/57 10/22/19 08:28 81 111/57 10/22/19 08:27 81 111/57 10/22/19 08:02 82 18 100 Room Air 21 82 17 98 10/22/19 08:00 97.2 81 18 111/57 (75) 100 10/22/19 04:00 65 10/22/19 02:31 64 10/22/19 00:05 74 18 100 Room Air 21 71 18 99 10/22/19 00:00 98.0 66 22 118/64 (82) 98 10/21/19 21:42 73 122/68 10/21/19 21:41 73 122/68 10/21/19 21:00 Room Air 10/21/19 20:00 97.7 82 20 108/68 (81) 98 10/21/19 20:00 74 10/21/19 18:13 126/72 10/21/19 16:41 69 10/21/19 16:00 98.4 69 16 126/72 (90) 97 10/21/19 15:41 71 18 100 Room Air 21 68 18 99 General Appearance: no apparent distress Neck: no JVD Cardiovascular: normal rate, regular rhythm Respiratory/Chest: crackles/rales - left base Abdomen: normal bowel sounds, non tender, soft Extremities: moderate edema Intake and Output 10/21/19 10/22/19 19:00 07:00 Intake Total 1200 ml 240 ml Balance 1200 ml 240 ml Intake Oral 1200 ml 240 ml # Voids 3 Andrade Rebollar MD Oct 22, 2019 13:32
--- NOTE | 2019-10-22 14:18 | NUR ---
CASE MANAGEMENT: REVIEW 10/22/19 SI: DECOMPENSATED CONGESTED HEART FAILURE. PULMONARY EDEMA . DM . CHF EXACERBATION 97.3 70 20 130/70 98% ROOM AIR IS: IV LASIX BID ALDACTONE PO QD LOPRESSOR PO BID ASPIRIN PO QD LIPITOR PO QHS LOTENSIN PO BID FLOMAX PO QD JANUVIA PO AC&HS GLIMEPIRIDE PO AC ALBUTEROL HHN Q8HR \: 2E TELEMETRY UNIT DCP: PATIENT IS FROM [facility] PLAN: ADMIT TO INPATIENT [facility]
[2019-10-22 16:00] VITALS: BP 116/74
[2019-10-22] MEDS: Montelukast 10mg tablet ORAL SCH (17:09)
--- NOTE | 2019-10-22 18:47 | Pulmonology Progress Note ---
Assessment/Plan Assessment/Plan IMPRESSION: 1. Decompensated congestive heart failure. 2. Pulmonary edema. 3. Diabetes mellitus. 4. Hypertension. DISCUSSION: I will follow carefully as author's agent and title search manager. Seen by Cardiology. Continue diuresis Dchome AM Geovanny Ashby M.D. Subjective Interval Events: None new Constitutional: Reports: no symptoms HEENT: Repors: no symptoms Respiratory: Reports: no symptoms Cardiovascular: Reports: no symptoms Gastrointestinal/Abdominal: Reports: no symptoms Allergies: Coded Allergies: No Known Allergies (Verified , 02/03/08) Objective Last 24 Hour Vital Signs Date Time Temp Pulse Resp B/P (MAP) Pulse Ox O2 Delivery O2 Flow Rate FiO2 10/22/19 17:10 116/74 10/22/19 16:00 98.1 83 20 116/74 (88) 98 10/22/19 15:26 83 19 98 Room Air 21 80 16 97 10/22/19 12:00 97.3 70 20 130/70 (90) 98 10/22/19 08:28 111/57 10/22/19 08:28 81 111/57 10/22/19 08:27 81 111/57 10/22/19 08:02 82 18 100 Room Air 21 82 17 98 10/22/19 08:00 97.2 81 18 111/57 (75) 100 10/22/19 04:00 65 10/22/19 02:31 64 10/22/19 00:05 74 18 100 Room Air 21 71 18 99 10/22/19 00:00 98.0 66 22 118/64 (82) 98 10/21/19 21:42 73 122/68 10/21/19 21:41 73 122/68 10/21/19 21:00 Room Air 10/21/19 20:00 97.7 82 20 108/68 (81) 98 10/21/19 20:00 74 Intake and Output 10/21/19 10/22/19 19:00 07:00 Intake Total 1200 ml 240 ml Balance 1200 ml 240 ml Intake Oral 1200 ml 240 ml # Voids 3 General Appearance: no acute distress HEENT: normocephalic Respiratory/Chest: chest wall non-tender, normal breath sounds Cardiovascular: normal peripheral pulses Abdomen: soft, non tender Current Medications Medications (Trade) Dose Ordered Sig/Hemant Route PRN Reason Start Time Stop Time Status Last Admin Dose Admin Albuterol/ Ipratropium (Albuterol/ Ipratropium) 3 ml Q8HRT HHN 10/20/19 07:15 10/25/19 07:14 10/22/19 15:25 Aspirin (Ecotrin) 81 mg DAILY ORAL 10/21/19 09:00 11/20/19 08:59 10/22/19 08:27 Atorvastatin Calcium (Lipitor) 80 mg BEDTIME ORAL 10/20/19 21:00 11/19/19 20:59 10/21/19 21:41 Benazepril HCl (Lotensin) 2.5 mg BID ORAL 10/21/19 09:00 11/20/19 08:59 10/22/19 17:10 Carvedilol (Coreg) 3.125 mg EVERY 12 HOURS ORAL 10/21/19 09:00 11/20/19 08:59 10/21/19 21:42 Dextrose (Dextrose 50%) 25 ml Q30M PRN IV Hypoglycemia 10/20/19 07:00 11/19/19 06:59 Dextrose (Dextrose 50%) 50 ml Q30M PRN IV Hypoglycemia 10/20/19 07:00 11/19/19 06:59 Folic Acid (Folate) 1 mg DAILY ORAL 10/20/19 09:00 11/19/19 08:59 10/22/19 08:27 Furosemide (Lasix) 40 mg Q12H IV 10/20/19 12:00 11/19/19 11:59 10/22/19 12:50 Glimepiride (AmaryL) 1 mg ACBREAKFAST ORAL 10/20/19 07:15 11/19/19 07:14 10/22/19 07:36 Guaifenesin (Robitussin) 100 mg Q4H PRN ORAL For Cough 10/20/19 07:00 11/19/19 06:59 Insulin Aspart (NovoLOG) BEFORE MEALS AND HS SUBQ 10/20/19 11:30 11/19/19 11:29 10/22/19 17:12 Metoprolol Tartrate (Lopressor) 25 mg Q12HR ORAL 10/20/19 09:00 11/19/19 08:59 10/22/19 08:28 Montelukast Sodium (Singulair) 10 mg QPM ORAL 10/20/19 16:30 11/19/19 16:29 10/22/19 17:09 Sitagliptin Phosphate (Januvia) 100 mg ACBREAKFAST ORAL 10/20/19 07:15 11/19/19 07:14 10/22/19 07:36 Spironolactone (Aldactone) 12.5 mg DAILY ORAL 10/20/19 09:00 11/19/19 08:59 10/21/19 09:58 Tamsulosin HCl (Flomax) 0.4 mg DAILY ORAL 10/20/19 09:00 11/19/19 08:59 10/22/19 08:27 Vitamin D (Vitamin D) 2,000 intlu DAILY ORAL 10/20/19 09:00 11/19/19 08:59 10/22/19 08:27 Geovanny Ashby MD Oct 22, 2019 18:47
--- NOTE | 2019-10-22 19:23 | NUR ---
HAND-OFF: Report given to Patricia.
[2019-10-22 20:00] VITALS: BP 142/66
--- NOTE | 2019-10-22 20:00 | NUR ---
NURSE NOTES: RECEIVED PATIENT SITTING IN CHAIR, AWAKE, ALERT/ORIENTED TO PERSON/PLACE, MENTALLY CHALLENGED, REALITY ORIENTATION PROVIDED. VERBALLY RESPONSIVE, DENIES PAIN. NO SIGNS AND SYMPTOMS OF ACUTE CARDIO RESPIRATORY DISTRESS/SHORTNESS OF BREATH, DENIES CHEST PAIN, NO PERIPHERAL EDEMA NOTED, NOTED WITH TRACE EDEMA TO BILATERAL LOWER EXTREMITIES. CONTINUE ON MACHINE I ENGRAVER. NO COMPLAINTS OF GI DISCOMFORT, NO N/V/D, BATHROOM PRIVILEGES. ENCOURAGED PATIENT TO UTILIZE CALL LIGHT FOR ASSISTANCE, VERBALIZED UNDERSTANDING. FREQUENT ROUNDING FOR SAFETY/NEEDS. NAD.
[2019-10-22] MEDS: Atorvastatin 80mg tab ORAL SCH (21:00)
[2019-10-23] VITALS: BP 114/61
[2019-10-23 04:00] VITALS: BP_SYST 138; BP_SYST 155; BP_DIAS 65; BP_DIAS 68
[2019-10-23] MEDS: NovoLOG Insulin Flexpen SUBQ SCH ×2 (06:30→11:30)
[2019-10-23] MEDS: Glimepiride 1mg tab ORAL SCH (06:47)
--- NOTE | 2019-10-23 06:57 | NUR ---
NURSE NOTES: MONITORED BLOOD GLUCOSE VIA GLUCOMETER WITH RESULT 116MG/DL, ASYMPTOMATIC, NO INSULIN COVERAGE.
--- NOTE | 2019-10-23 07:28 | NUR ---
HAND-OFF: Report given to BREONNA PEÑA.
--- NOTE | 2019-10-23 07:45 | NUR ---
NURSE NOTES: RECEIVED PATIENT SITTING IN CHAIR, AWAKE, ALERT/ORIENTEDx2, REALITY ORIENTATION PROVIDED. DENIES PAIN. NO SIGNS AND SYMPTOMS OF ACUTE CARDIO-RESPIRATORY DISTRESS/SHORTNESS OF BREATH, DENIES CHEST PAIN, NOTED WITH TRACE EDEMA TO BILATERAL LOWER EXTREMITIES. NO COMPLAINTS OF GI DISCOMFORT, NO N/V/D, BATHROOM PRIVILEGES WITH MINIMAL ASSISTANCE. KEPT BED IN THE LOWEST POSITION. SIDERAILS ARE UP X2. ENCOURAGED PATIENT TO UTILIZE CALL LIGHT FOR ASSISTANCE, FREQUENT ROUNDING FOR SAFETY/NEEDS. WILL CONT THE PLAN OF CARE.
[2019-10-23] MEDS: Albuterol/Ipratropium 3ml neb HHN SCH (07:46)
[2019-10-23 08:00] VITALS: BP 135/76
[2019-10-23] MEDS: Spironolactone 25mg tab ORAL SCH (08:41)
[2019-10-23] MEDS: Vitamin D 1000 IU Tab ORAL SCH (08:41)
[2019-10-23] MEDS: Tamsulosin 0.4mg cap ORAL SCH (08:41)
[2019-10-23] MEDS: Aspirin EC 81mg tab ORAL SCH (08:41)
[2019-10-23] MEDS: Benazepril 10mg tab ORAL SCH ×2 (08:42→11:31)
--- NOTE | 2019-10-23 11:58 | Pulmonology Progress Note ---
Assessment/Plan Assessment/Plan IMPRESSION: 1. Decompensated congestive heart failure. 2. Pulmonary edema. 3. Diabetes mellitus. 4. Hypertension. DISCUSSION: I will follow carefully as vice admiral and concept artist. Seen by Cardiology. Continue diuresis Dc home today Geovanny Ashby M.D. Subjective Interval Events: Looking and feeling better Constitutional: Reports: no symptoms HEENT: Repors: no symptoms Respiratory: Reports: no symptoms Allergies: Coded Allergies: No Known Allergies (Verified , 02/03/08) Objective Last 24 Hour Vital Signs Date Time Temp Pulse Resp B/P (MAP) Pulse Ox O2 Delivery O2 Flow Rate FiO2 10/23/19 10:35 92 10/23/19 10:33 Room Air 10/23/19 08:42 135/76 10/23/19 08:41 89 135/76 10/23/19 08:40 89 135/76 10/23/19 08:00 99.7 89 18 135/76 (95) 97 10/23/19 07:51 89 20 99 Room Air 21 84 22 97 10/23/19 04:00 75 10/23/19 04:00 97.9 76 20 138/65 (89) 96 10/23/19 00:00 98.1 74 20 114/61 (78) 98 10/23/19 00:00 74 10/22/19 23:46 67 18 99 Room Air 21 63 18 96 10/22/19 21:01 81 127/80 10/22/19 21:00 Room Air 10/22/19 21:00 81 127/80 10/22/19 20:15 20 10/22/19 20:00 84 10/22/19 20:00 98.2 91 24 142/66 (91) 98 10/22/19 17:10 116/74 10/22/19 16:32 93 10/22/19 16:00 98.1 83 20 116/74 (88) 98 10/22/19 15:26 83 19 98 Room Air 21 80 16 97 10/22/19 12:00 97.3 70 20 130/70 (90) 98 Intake and Output 10/22/19 10/23/19 19:00 07:00 Intake Total 1120 ml 480 ml Output Total 1000 ml Balance 120 ml 480 ml Intake Oral 1120 ml 480 ml Output Urine Total 1000 ml # Voids 5 6 # Bowel Movements 1 General Appearance: no acute distress HEENT: normocephalic Respiratory/Chest: chest wall non-tender Cardiovascular: normal peripheral pulses Abdomen: normal bowel sounds Current Medications Medications (Trade) Dose Ordered Sig/Hemant Route PRN Reason Start Time Stop Time Status Last Admin Dose Admin Albuterol/ Ipratropium (Albuterol/ Ipratropium) 3 ml Q8HRT HHN 10/20/19 07:15 10/25/19 07:14 10/23/19 07:46 Aspirin (Ecotrin) 81 mg DAILY ORAL 10/21/19 09:00 11/20/19 08:59 10/23/19 08:41 Atorvastatin Calcium (Lipitor) 80 mg BEDTIME ORAL 10/20/19 21:00 11/19/19 20:59 10/22/19 21:00 Benazepril HCl (Lotensin) 2.5 mg BID ORAL 10/21/19 09:00 11/20/19 08:59 10/23/19 08:42 Carvedilol (Coreg) 3.125 mg EVERY 12 HOURS ORAL 10/21/19 09:00 11/20/19 08:59 10/23/19 08:41 Dextrose (Dextrose 50%) 25 ml Q30M PRN IV Hypoglycemia 10/20/19 07:00 11/19/19 06:59 Dextrose (Dextrose 50%) 50 ml Q30M PRN IV Hypoglycemia 10/20/19 07:00 11/19/19 06:59 Folic Acid (Folate) 1 mg DAILY ORAL 10/20/19 09:00 11/19/19 08:59 10/23/19 08:41 Furosemide (Lasix) 40 mg Q12H IV 10/20/19 12:00 11/19/19 11:59 10/23/19 00:19 Glimepiride (AmaryL) 1 mg ACBREAKFAST ORAL 10/20/19 07:15 11/19/19 07:14 10/23/19 06:47 Guaifenesin (Robitussin) 100 mg Q4H PRN ORAL For Cough 10/20/19 07:00 11/19/19 06:59 Insulin Aspart (NovoLOG) BEFORE MEALS AND HS SUBQ 10/20/19 11:30 11/19/19 11:29 10/22/19 21:06 Metoprolol Tartrate (Lopressor) 25 mg Q12HR ORAL 10/20/19 09:00 11/19/19 08:59 10/23/19 08:40 Montelukast Sodium (Singulair) 10 mg QPM ORAL 10/20/19 16:30 11/19/19 16:29 10/22/19 17:09 Sitagliptin Phosphate (Januvia) 100 mg ACBREAKFAST ORAL 10/20/19 07:15 11/19/19 07:14 10/23/19 06:47 Spironolactone (Aldactone) 12.5 mg DAILY ORAL 10/20/19 09:00 11/19/19 08:59 10/23/19 08:41 Tamsulosin HCl (Flomax) 0.4 mg DAILY ORAL 10/20/19 09:00 11/19/19 08:59 10/23/19 08:41 Vitamin D (Vitamin D) 2,000 intlu DAILY ORAL 10/20/19 09:00 11/19/19 08:59 10/23/19 08:41 Geovanny Ashby MD Oct 23, 2019 11:58
[2019-10-23] MEDS ORDERED: BENAZEPRIL HCL10 MG ORAL (12:01)
[2019-10-23] MEDS ORDERED: FUROSEMIDE40 MG ORAL (12:01)
[2019-10-23 12:08] VITALS: BP 99/59
[2019-10-23] MEDS ORDERED: Furosemide 40mg tab ORAL SCH (12:30)
[2019-10-23 12:33] VITALS: BP 129/72
--- NOTE | 2019-10-23 13:00 | NUR ---
NURSE NOTES: DISCHARGE HOME TO A BOARD AND CARE WITH INSTRUCTIONS. RX GIVEN TO KRYSTLE VERIFIED HOME ADDRESS WITH THE BUILDING REPAIR MAINTENANCE SUPERVISOR, KRYSTLE WEBER. PERSONAL BELONGINGS NOTED S/T/D. IV HEPLOCK REMOVED. IN STABLE CONDITION.
--- NOTE | 2019-10-24 13:49 | Discharge Summary ---
Discharge Summary Discharge Summary _ DATE OF ADMISSION: 10/21/2019 DATE OF DISCHARGE: 10/23/2019 DISCHARGED BY: Dr. Ashby REASON FOR ADMISSION: 79 years old male with past medical history of AICD, congestive heart failure, diabetes mellitus, coronary artery bypass surgery, developmental delay, presented with complaint of cough for 1 day. He denied fever and chills. No nausea or vomiting. Vital signs were stable. EKG revealed sinus rhythm , no acute ischemic changes. Chest x-ray revealed pulmonary vascular congestion , consistent with congestive heart failure. Troponin was negative. pro BNP 1923. BUN 39, creatinine 1.6. Patient subsequently admitted to telemetry floor for further management. CONSULTANTS: [facility]: Patient admitted to telemetry floor. Patient started on diuresis with close monitoring of volumes and cardiorenal parameters. Antiplatelet therapy with aspirin continued. Echocardiogram demonstrated global left ventricular hypokinesis with left ventricular ejection fraction estimated to be 30 to 35%. No evidence of left ventricular hypertrophy. No evidence of pericardial effusion. Right ventricular systolic pressure of 43 consistent with a mild pulmonary hypertension. At least moderate mitral regurgitation. Guideline directed medical therapy for congestive heart failure provided with beta-lillian, FELIX inhibitor and diuretics: Lasix and Aldactone. Serial troponin were negative. EKG revealed no acute ischemic changes. Patient was ruled out for acute [place]. Statin continued. Blood sugar was managed with current regimen and remained stable. Diuretic changed to oral upon discharge. Patient clinically stabilized and was ready for discharge back to assisted living. FINAL DIAGNOSES: Congestive heart failure exacerbation Cardiomyopathy with ejection fraction 30 to 35% Coronary artery disease ,status post CABG Developmental delay Questionable history of COPD AICD, with RV lead malfunction in 2017 Diabetes mellitus Hypertension DISCHARGE MEDICATIONS: See Medication Reconciliation list. DISCHARGE INSTRUCTIONS: Patient was discharged to assisted living. Follow-up with a primary care provider in 1 week. I have been assigned to dictate discharge summary for this account. I was not involved in the patient's management. Leyla Howell NP Oct 24, 2019 13:49
--- NOTE | 2019-10-25 12:18 | NUR ---
*-* INSURANCE *-* ALL AVAILABLE CLINICALS HAVE BEEN FAXED TO: DANNY:JSASI REF# [id number] P: [phone] F: [phone]
--- NOTE | 2019-11-02 08:43 | Coder Physician Query ---
Clarification is required for compliance, coding accuracy, and to reflect severity of illness for this patient Dear Dr. CONDON Date: 11/02/2019 Cardiology Rn/CDS Name: JUANBENI "Heart Failure / CHF" documented in REASON FOR ADMISSION: 79 years old male with past medical history of AICD, congestive heart failure FINAL DIAGNOSES: Congestive heart failure exacerbation Cardiomyopathy with LV ejection fraction 30 to 35% Bnp on 10/29/191922 Please Clarify the CHF: Type : [] Systolic [] Diastolic [] Systolic & Diastolic (Combined) [] Other: RAMONITA CONDON M.D. Date & Time Please also document in your Progress Notes and/or Discharge Summary and indicate if the condition was present on admission. MTDD
== END 2019-10-23 17:39 | DRG 293 ==
LOC: EDBD 22:05 → EMR 23:59 → 2E 10-20 01:21 → EDBEDREQ 10-20 01:29 → OBSVTOIN 10-21 14:57
DX: I11.0 Hypertensive heart disease with heart failure (principal); J44.9 Chronic obstructive pulmonary disease, unspecified; I50.23 Acute on chronic systolic (congestive) heart failure; I25.10 Atherosclerotic heart disease of native coronary artery without angina pectoris; F79 Unspecified intellectual disabilities; Z95.1 Presence of aortocoronary bypass graft; E11.9 Type 2 diabetes mellitus without complications; Z79.82 Long term (current) use of aspirin; I42.9 Cardiomyopathy, unspecified; Z95.810 Presence of automatic (implantable) cardiac defibrillator; I34.0 Nonrheumatic mitral (valve) insufficiency; I27.20 Pulmonary hypertension, unspecified
CPT/HCPCS: 36415; 71045; 80048; 80053; 81003; 82962; 83735; 83880; 84484; 85025; 93005; 93306; 94640; 94664; 96374; 99284; J1815; J7620